=== PATIENT | male | born 1960 | race Caucasian/White ===

== ENCOUNTER 2018-02-02 12:34 | Inpatient (IN) | payer OTHER ==
[~2018-02-02] VITALS: Ht 190.5 cm; Wt 113.4 kg
[2018-02-02 12:46] VITALS: BP 132/53
[2018-02-02] MEDS ORDERED: GLIP5TER PO (13:05)
[2018-02-02] MEDS ORDERED: METO25TE2 PO (13:05)
[2018-02-02] MEDS ORDERED: CLON0.1T42 PO (13:05)
[2018-02-02] MEDS ORDERED: CINA60TA1 PO (13:05)
[2018-02-02] MEDS ORDERED: LON2.5 PO (13:05)
[2018-02-02 14:26] LABS: BASOPHILS % (AUTO) 0.7 % (0.0-2.0); EOSINOPHILS # (AUTO) 1.1 K/uL (0-0.4); EOSINOPHILS % (AUTO) 19.9 % (0.0-4.0); HEMATOCRIT 31.5 % (36-52); HEMOGLOBIN 10.6 g/dL (12.0-18.0); LYMPHOCYTES # (AUTO) 1.2 K/uL (2.0-11.5); LYMPHOCYTES % (AUTO) 21.9 % (20.5-51.1); MEAN CORPUSCULAR HEMOGLOBIN 33 pg (27-31); MEAN CORPUSCULAR HGB CONC 34 g/dL (33-37); MEAN CORPUSCULAR VOLUME 96.5 fL (80-94); MONOCYTES # (AUTO) 0.4 K/uL (0.8-1.0); NEUTROPHILS # (AUTO) 2.7 K/uL (1.8-7.7); NEUTROPHILS % (AUTO) 49.5 % (42.2-75.2); PLATELET COUNT (AUTO) 107 K/uL (140-450); RED BLOOD CELL COUNT(AUTO) 3.27 MIL/uL (4.20-6.10); RED CELL DISTRIBUTION WIDTH 14.3 % (11.6-13.7); WHITE BLOOD COUNT (AUTO) 5.5 K/uL (4.8-10.8)
[2018-02-02 15:11] LABS: ANION GAP 13.1 (8-16); CARBON DIOXIDE 30.9 mmol/L (21-32)
[2018-02-02 15:12] LABS: ALBUMIN 3.6 g/dL (3.4-5.0); TOTAL BILIRUBIN 0.7 mg/dL (0.0-1.0)
[2018-02-02 15:14] LABS: CREATININE 4.9 mg/dL (0.7-1.3)
[2018-02-02] MEDS ORDERED: ASPIRIN 81 MG TAB.CHEW PO ONE (16:00)
[2018-02-02] MEDS ORDERED: NITROGLYCERIN 2% 1 GM PKT TP ONE (16:00)
[2018-02-02] MEDS ORDERED: ALBUTEROL 0.083% 2.5 MG/3 ML NEBU INH ONE (16:15)
[2018-02-02] MEDS ORDERED: IPRATROPIUM 0.02% 0.5 MG/2.5 ML NEBU INH ONE (16:15)
[2018-02-02] MEDS ORDERED: HYDROcodone/APAP 5/325 MG 1 TAB TAB PO PRN (17:05)
[2018-02-02] MEDS ORDERED: ALBUTEROL SULFATE/IPRATROPIU 3 ML SOL IH PRN (17:05)
[2018-02-02] MEDS ORDERED: DOCUSATE SODIUM 100 MG GELCAP PO PRN (17:05)
[2018-02-02] MEDS ORDERED: ONDANSETRON 4 MG/2 ML VIAL IM/IVP PRN (17:05)
[2018-02-02] MEDS ORDERED: ZOLPIDEM 5 MG TAB PO PRN (17:05)
[2018-02-02] MEDS ORDERED: LORazepam 2 MG/ML VIAL IM/IVP PRN (17:05)
[2018-02-02] MEDS ORDERED: ACETAMINOPHEN 325 MG TAB PO PRN (17:05)
[2018-02-02] MEDS ORDERED: DEXTROSE 50% 50 ML SYR IVP PRN ×2 (17:35→20:35)
[2018-02-02] MEDS ORDERED: INSULIN LISPRO SLIDING SCALE 100 UNITS/ML VIAL SUBQ PRN (17:35)
[2018-02-02 17:55] VITALS: BP 143/69
[2018-02-02 18:54] LABS: PROTHROMBIN TIME 10.3 secs (10.8-13.4)
[2018-02-02] MEDS: ALBUTEROL SULFATE/IPRATROPIU 3 ML SOL IH SCH (19:00)
[2018-02-02 19:05] LABS: MAGNESIUM 1.8 mg/dL (1.8-2.4); PHOSPHORUS 3.7 mg/dL (2.5-4.9); THYROID STIMULATING HORMONE 3.63 uIU/mL (0.34-3.74)
[2018-02-02 20:00] VITALS: BP 154/61
[2018-02-02] MEDS ORDERED: GLIP5TAB13 PO (20:15)
[2018-02-02] MEDS ORDERED: [UNRECOGNIZED DRUG - CODE] PO (20:21)
[2018-02-02] MEDS ORDERED: PHO667 PO (20:21)
[2018-02-02] MEDS ORDERED: METO100T22 PO (20:21)
[2018-02-02] MEDS ORDERED: [UNRECOGNIZED DRUG - CODE] IJ (20:23)
[2018-02-02] MEDS ORDERED: MECLIZINE 25 MG TAB PO PRN (20:30)
[2018-02-02] MEDS: METOPROLOL 50 MG TAB PO SCH (20:40)
[2018-02-02] MEDS: MINOXIDIL 2.5 MG TAB PO SCH (20:41)
[2018-02-02] MEDS: cloNIDine 0.1 MG TAB PO SCH (20:43)
[2018-02-02] MEDS: BLOOD GLUCOSE MONITORING 1 DEV DEV FS SCH (20:43)
[2018-02-02] MEDS ORDERED: BLOOD GLUCOSE MONITORING 1 DEV DEV FS SCH (21:00)
[2018-02-02] MEDS ORDERED: NACL 0.9% 1,000 ML IV SCH (21:40)
[2018-02-02] MEDS ORDERED: PIPERACILLIN/TAZOBACTAM 2.25 GM VIAL IV ONE (22:38)
[2018-02-02] MEDS: PIPER/TAZO 2.25GM/D5W PREMIX 50 ML IV SCH (22:42)
[2018-02-03] VITALS: BP 154/61
[2018-02-03] MEDS: cloNIDine 0.1 MG TAB PO SCH ×3 (00:25→23:01)
[2018-02-03] MEDS: ALBUTEROL SULFATE/IPRATROPIU 3 ML SOL IH PRN ×2 (00:49→04:34)
[2018-02-03] MEDS ORDERED: ALBUTEROL SULFATE/IPRATROPIU 3 ML SOL IH SCH (01:00)
[2018-02-03] MEDS ORDERED: BENZOCAINE/MENTHOL 1 LOZ MM PRN (02:40)
[2018-02-03] MEDS ORDERED: guaiFENesin DM 200/20 MG-10 ML 10 ML UDC PO PRN (02:40)
[2018-02-03 04:00] VITALS: BP 122/49
[2018-02-03] MEDS ORDERED: PIPERACILLIN/TAZOBACTAM 2.25 GM VIAL IV ONE (05:36)
[2018-02-03] MEDS: PIPER/TAZO 2.25GM/D5W PREMIX 50 ML IV SCH ×3 (05:36→21:31)
[2018-02-03] MEDS: glipiZIDE 5 MG TAB PO SCH (05:37)
[2018-02-03] MEDS: BLOOD GLUCOSE MONITORING 1 DEV DEV FS SCH ×4 (06:02→20:16)
[2018-02-03 06:25] LABS: T4 (THYROXINE) 9.1 ug/dL (4.5-12.0)
[2018-02-03 06:51] LABS: BASOPHILS % (AUTO) 0.8 % (0.0-2.0); EOSINOPHILS # (AUTO) 1.2 K/uL (0-0.4); EOSINOPHILS % (AUTO) 21.1 % (0.0-4.0); HEMATOCRIT 30.6 % (36-52); HEMOGLOBIN 10.2 g/dL (12.0-18.0); LYMPHOCYTES # (AUTO) 1.1 K/uL (2.0-11.5); LYMPHOCYTES % (AUTO) 18.9 % (20.5-51.1); MEAN CORPUSCULAR HEMOGLOBIN 32 pg (27-31); MEAN CORPUSCULAR HGB CONC 33 g/dL (33-37); MEAN CORPUSCULAR VOLUME 97.3 fL (80-94); MONOCYTES # (AUTO) 0.5 K/uL (0.8-1.0); MONOCYTES % (AUTO) 8.8 % (1.7-9.3); NEUTROPHILS # (AUTO) 2.9 K/uL (1.8-7.7); NEUTROPHILS % (AUTO) 50.4 % (42.2-75.2); PLATELET COUNT (AUTO) 104 K/uL (140-450); RED BLOOD CELL COUNT(AUTO) 3.15 MIL/uL (4.20-6.10); RED CELL DISTRIBUTION WIDTH 14.4 % (11.6-13.7); WHITE BLOOD COUNT (AUTO) 5.8 K/uL (4.8-10.8)
[2018-02-03 07:07] LABS: ANION GAP 13.6 (8-16); CARBON DIOXIDE 29.6 mmol/L (21-32); POTASSIUM 4.2 mmol/L (3.5-5.1)
[2018-02-03 07:20] LABS: CHOL/HDL RATIO 2.6 (1-4.5); MAGNESIUM 2.1 mg/dL (1.8-2.4); PHOSPHORUS 4.9 mg/dL (2.5-4.9)
[2018-02-03] MEDS: ALBUTEROL SULFATE/IPRATROPIU 3 ML SOL IH SCH ×3 (07:24→19:49)
[2018-02-03 08:00] VITALS: BP 156/71
[2018-02-03] MEDS: MINOXIDIL 2.5 MG TAB PO SCH ×2 (09:00→21:32)
[2018-02-03] MEDS: METOPROLOL 50 MG TAB PO SCH ×2 (09:00→21:32)
[2018-02-03 12:00] VITALS: BP 133/59
[2018-02-03] MEDS: INSULIN LISPRO SLIDING SCALE 100 UNITS/ML VIAL SUBQ PRN (12:43)
[2018-02-03] MEDS ORDERED: guaiFENesin 600 MG TABER PO SCH (15:00)
[2018-02-03 16:00] VITALS: BP 137/63
[2018-02-03 20:00] VITALS: BP 132/54
[2018-02-03] MEDS: guaiFENesin 600 MG TABER PO SCH (21:32)
[2018-02-04] VITALS: BP 130/54
[2018-02-04 04:00] VITALS: BP 131/57
[2018-02-04] MEDS: PIPER/TAZO 2.25GM/D5W PREMIX 50 ML IV SCH ×3 (04:36→21:13)
[2018-02-04] MEDS: BLOOD GLUCOSE MONITORING 1 DEV DEV FS SCH ×4 (05:57→21:13)
[2018-02-04] MEDS: glipiZIDE 5 MG TAB PO SCH (05:57)
[2018-02-04] MEDS: ALBUTEROL SULFATE/IPRATROPIU 3 ML SOL IH SCH ×4 (07:25→19:24)
[2018-02-04 07:49] LABS: BASOPHILS # (AUTO) 0.1 K/uL (0.00-0.22); BASOPHILS % (AUTO) 0.9 % (0.0-2.0); EOSINOPHILS # (AUTO) 1.4 K/uL (0-0.4); HEMATOCRIT 31.4 % (36-52); HEMOGLOBIN 10.6 g/dL (12.0-18.0); LYMPHOCYTES # (AUTO) 0.8 K/uL (2.0-11.5); MEAN CORPUSCULAR HEMOGLOBIN 33 pg (27-31); MEAN CORPUSCULAR HGB CONC 34 g/dL (33-37); MONOCYTES # (AUTO) 0.5 K/uL (0.8-1.0); MONOCYTES % (AUTO) 8.1 % (1.7-9.3); NEUTROPHILS # (AUTO) 3.1 K/uL (1.8-7.7); PLATELET COUNT (AUTO) 108 K/uL (140-450); RED BLOOD CELL COUNT(AUTO) 3.23 MIL/uL (4.20-6.10); RED CELL DISTRIBUTION WIDTH 14.5 % (11.6-13.7); WHITE BLOOD COUNT (AUTO) 5.8 K/uL (4.8-10.8)
[2018-02-04 08:00] VITALS: BP 153/64
[2018-02-04 08:31] LABS: ANION GAP 13.2 (8-16); CARBON DIOXIDE 30.7 mmol/L (21-32); POTASSIUM 3.9 mmol/L (3.5-5.1)
[2018-02-04 08:36] LABS: MAGNESIUM 1.9 mg/dL (1.8-2.4); PHOSPHORUS 4.6 mg/dL (2.5-4.9)
[2018-02-04 09:16] LABS: CREATININE 4.9 mg/dL (0.7-1.3)
[2018-02-04] MEDS: guaiFENesin 600 MG TABER PO SCH ×2 (09:58→21:14)
[2018-02-04] MEDS: METOPROLOL 50 MG TAB PO SCH ×2 (09:59→21:15)
[2018-02-04] MEDS: cloNIDine 0.1 MG TAB PO SCH ×2 (09:59→21:15)
[2018-02-04] MEDS: MINOXIDIL 2.5 MG TAB PO SCH (10:00)
[2018-02-04] MEDS ORDERED: LORazepam 2 MG/ML VIAL IM/IVP SCH (11:15)
[2018-02-04 12:00] VITALS: BP 125/57
[2018-02-04] MEDS: INSULIN LISPRO SLIDING SCALE 100 UNITS/ML VIAL SUBQ PRN ×2 (12:21→21:26)
[2018-02-04] MEDS ORDERED: PROMETH/CODEINE 6.25-10MG/5ML 5 ML UDC PO PRN (15:50)
[2018-02-04 16:00] VITALS: BP 127/62
[2018-02-04] MEDS: BUDESONIDE 0.5 MG/2 ML NEBU INH SCH (19:24)
[2018-02-04 20:00] VITALS: BP 123/58
[2018-02-04] MEDS: MINOXIDIL 10 MG TAB PO SCH (21:14)
[2018-02-05] VITALS (7 sets, daily range): BP systolic 92–134; BP diastolic 48–80
[2018-02-05] MEDS: PIPER/TAZO 2.25GM/D5W PREMIX 50 ML IV SCH ×3 (04:33→21:12)
[2018-02-05] MEDS: BLOOD GLUCOSE MONITORING 1 DEV DEV FS SCH ×4 (05:30→21:15)
[2018-02-05] MEDS: INSULIN LISPRO SLIDING SCALE 100 UNITS/ML VIAL SUBQ PRN ×3 (05:36→21:19)
[2018-02-05] MEDS: glipiZIDE 5 MG TAB PO SCH ×2 (06:12→06:19)
[2018-02-05] MEDS: BUDESONIDE 0.5 MG/2 ML NEBU INH SCH ×2 (07:31→20:19)
[2018-02-05] MEDS: ALBUTEROL SULFATE/IPRATROPIU 3 ML SOL IH SCH ×3 (07:31→20:19)
[2018-02-05 07:51] LABS: HEMATOCRIT 28.3 % (36-52); HEMOGLOBIN 9.5 g/dL (12.0-18.0); MEAN CORPUSCULAR HEMOGLOBIN 33 pg (27-31); MEAN CORPUSCULAR HGB CONC 34 g/dL (33-37); MEAN CORPUSCULAR VOLUME 97.4 fL (80-94); PLATELET COUNT (AUTO) 89 K/uL (140-450); RED CELL DISTRIBUTION WIDTH 14.8 % (11.6-13.7); WHITE BLOOD COUNT (AUTO) 5.5 K/uL (4.8-10.8)
[2018-02-05 08:15] LABS: ANION GAP 9.8 (8-16); CARBON DIOXIDE 32.3 mmol/L (21-32); POTASSIUM 4.1 mmol/L (3.5-5.1)
[2018-02-05 08:17] LABS: CREATININE 6.9 mg/dL (0.7-1.3)
[2018-02-05 08:20] LABS: PHOSPHORUS 6.1 mg/dL (2.5-4.9)
[2018-02-05 08:22] LABS: EOSINOPHILS % (MANUAL) 18 % (0-4); LYMPHOCYTES % (MANUAL) 23 % (20-46); MONOCYTES % (MANUAL) 3 % (5-12)
[2018-02-05] MEDS: guaiFENesin 600 MG TABER PO SCH ×2 (08:34→21:12)
[2018-02-05] MEDS: MINOXIDIL 10 MG TAB PO SCH ×2 (08:34→21:12)
[2018-02-05] MEDS: cloNIDine 0.1 MG TAB PO SCH ×2 (08:35→21:13)
[2018-02-05] MEDS: METOPROLOL 50 MG TAB PO SCH ×2 (08:35→21:13)
[2018-02-06 04:28] VITALS: BP 134/66
[2018-02-06] MEDS: PIPER/TAZO 2.25GM/D5W PREMIX 50 ML IV SCH ×2 (04:34→12:56)
[2018-02-06] MEDS: BLOOD GLUCOSE MONITORING 1 DEV DEV FS SCH ×4 (06:13→20:54)
[2018-02-06] MEDS: BUDESONIDE 0.5 MG/2 ML NEBU INH SCH ×2 (07:21→19:42)
[2018-02-06] MEDS: ALBUTEROL SULFATE/IPRATROPIU 3 ML SOL IH SCH ×3 (07:21→19:42)
[2018-02-06 07:46] LABS: BASOPHILS % (AUTO) 0.7 % (0.0-2.0); EOSINOPHILS # (AUTO) 1.3 K/uL (0-0.4); EOSINOPHILS % (AUTO) 21.8 % (0.0-4.0); HEMATOCRIT 28.1 % (36-52); HEMOGLOBIN 9.5 g/dL (12.0-18.0); LYMPHOCYTES # (AUTO) 1.2 K/uL (2.0-11.5); MEAN CORPUSCULAR HEMOGLOBIN 33 pg (27-31); MEAN CORPUSCULAR HGB CONC 34 g/dL (33-37); MEAN CORPUSCULAR VOLUME 97.2 fL (80-94); MONOCYTES # (AUTO) 0.7 K/uL (0.8-1.0); MONOCYTES % (AUTO) 11.7 % (1.7-9.3); NEUTROPHILS # (AUTO) 2.8 K/uL (1.8-7.7); NEUTROPHILS % (AUTO) 45.8 % (42.2-75.2); PLATELET COUNT (AUTO) 87 K/uL (140-450); RED BLOOD CELL COUNT(AUTO) 2.89 MIL/uL (4.20-6.10); RED CELL DISTRIBUTION WIDTH 14.8 % (11.6-13.7); WHITE BLOOD COUNT (AUTO) 6.2 K/uL (4.8-10.8)
[2018-02-06 07:57] LABS: ANION GAP 17.2 (8-16); CARBON DIOXIDE 28.3 mmol/L (21-32); POTASSIUM 4.5 mmol/L (3.5-5.1)
[2018-02-06 08:00] VITALS: BP 116/71
[2018-02-06 08:19] LABS: CREATININE 8.6 mg/dL (0.7-1.3)
[2018-02-06] MEDS: cloNIDine 0.1 MG TAB PO SCH ×2 (09:00→20:55)
[2018-02-06] MEDS: METOPROLOL 50 MG TAB PO SCH ×2 (09:00→20:56)
[2018-02-06] MEDS: MINOXIDIL 10 MG TAB PO SCH ×2 (09:00→20:56)
[2018-02-06] MEDS: guaiFENesin 600 MG TABER PO SCH ×2 (11:46→20:56)
[2018-02-06] MEDS: INSULIN LISPRO SLIDING SCALE 100 UNITS/ML VIAL SUBQ PRN ×2 (11:55→17:28)
[2018-02-06 12:00] VITALS: BP 110/51
[2018-02-06 16:00] VITALS: BP 128/53
[2018-02-06 20:00] VITALS: BP 127/54
[2018-02-07] VITALS: BP 111/50
[2018-02-07] MEDS: BLOOD GLUCOSE MONITORING 1 DEV DEV FS SCH ×2 (05:59→12:10)
[2018-02-07] MEDS: INSULIN LISPRO SLIDING SCALE 100 UNITS/ML VIAL SUBQ PRN ×2 (06:03→12:12)
[2018-02-07] MEDS: ALBUTEROL SULFATE/IPRATROPIU 3 ML SOL IH SCH ×3 (07:08→15:15)
[2018-02-07] MEDS: BUDESONIDE 0.5 MG/2 ML NEBU INH SCH (07:17)
[2018-02-07 08:00] VITALS: BP 134/54
[2018-02-07] MEDS: MINOXIDIL 10 MG TAB PO SCH (10:42)
[2018-02-07] MEDS: guaiFENesin 600 MG TABER PO SCH (10:43)
[2018-02-07 10:46] VITALS: BP 126/57
[2018-02-07] MEDS: cloNIDine 0.1 MG TAB PO SCH (10:46)
[2018-02-07] MEDS: METOPROLOL 50 MG TAB PO SCH (10:47)
[2018-02-07 11:13] LABS: HEMATOCRIT 29.5 % (36-52); HEMOGLOBIN 9.9 g/dL (12.0-18.0); MEAN CORPUSCULAR HEMOGLOBIN 33 pg (27-31); MEAN CORPUSCULAR HGB CONC 34 g/dL (33-37); MEAN CORPUSCULAR VOLUME 97.3 fL (80-94); PLATELET COUNT (AUTO) 91 K/uL (140-450); RED BLOOD CELL COUNT(AUTO) 3.03 MIL/uL (4.20-6.10); RED CELL DISTRIBUTION WIDTH 14.7 % (11.6-13.7); WHITE BLOOD COUNT (AUTO) 5.2 K/uL (4.8-10.8)
[2018-02-07 11:24] LABS: ANION GAP 14.4 (8-16); CARBON DIOXIDE 30.3 mmol/L (21-32); POTASSIUM 3.7 mmol/L (3.5-5.1)
[2018-02-07 11:28] LABS: CREATININE 6.6 mg/dL (0.7-1.3)
[2018-02-07 11:35] LABS: PHOSPHORUS 5.4 mg/dL (2.5-4.9)
[2018-02-07 13:44] LABS: EOSINOPHILS % (MANUAL) 27 % (0-4); LYMPHOCYTES % (MANUAL) 20 % (20-46); MONOCYTES % (MANUAL) 8 % (5-12)
[2018-02-07 13:45] LABS: BASOPHILS % (MANUAL) 0 % (0-2)
== END 2018-02-07 15:55 | disposition home or self-care (01) | DRG 682 ==
LOC: MED 12:34 → MTU 17:10
PROVIDERS: ADMIT General Practice; ATTEND General Practice
PROC: 5A1D70Z Performance of Urinary Filtration, Intermittent, Less than 6 Hours Per Day (ICD-10-PCS; principal; 2018-02-03)
PROC: 5A1D70Z Performance of Urinary Filtration, Intermittent, Less than 6 Hours Per Day (ICD-10-PCS; 2018-02-06)
DX: N17.0 Acute kidney failure with tubular necrosis (principal); J18.9 Pneumonia, unspecified organism; G93.41 Metabolic encephalopathy; I50.43 Acute on chronic combined systolic (congestive) and diastolic (congestive) heart failure; J96.01 Acute respiratory failure with hypoxia; I13.2 Hypertensive heart and chronic kidney disease with heart failure and with stage 5 chronic kidney disease, or end stage renal disease; N18.6 End stage renal disease; Z99.2 Dependence on renal dialysis; D63.8 Anemia in other chronic diseases classified elsewhere; D72.1 Eosinophilia; E11.22 Type 2 diabetes mellitus with diabetic chronic kidney disease; E11.51 Type 2 diabetes mellitus with diabetic peripheral angiopathy without gangrene; E83.39 Other disorders of phosphorus metabolism; D69.6 Thrombocytopenia, unspecified; E11.65 Type 2 diabetes mellitus with hyperglycemia; R59.1 Generalized enlarged lymph nodes; Z89.511 Acquired absence of right leg below knee; Z79.84 Long term (current) use of oral hypoglycemic drugs; Z79.899 Other long term (current) drug therapy; Z89.011 Acquired absence of right thumb; Z91.018 Allergy to other foods
CPT/HCPCS: 36415; 36600; 70450; 71045; 71250; 80048; 80053; 82150; 82803; 82948; 83036; 83605; 83690; 83735; 83880; 84100; 84134; 84436; 84443; 84484; 85025; 85610; 85730; 87040; 87070; 87081; 87205; 87804; 88189; 93880; 93925; 93970; 94640; 97116; 97530; 99285; J2060; J2543; J7030; J7060; J7613; J7620; J7626; J7644; Q0092

== ENCOUNTER 2018-03-02 10:23 | Emergency (ER) | payer OTHER ==
[~2018-03-02] VITALS: Ht 190.5 cm; Wt 114.8 kg
[~2018-03-02 10:23] MED LIST: CINA60TA1 PO; CLON0.1T42 PO; GLIP5TAB13 PO; LON2.5 PO; METO100T22 PO; PHO667 PO; [UNRECOGNIZED DRUG - CODE] IJ; [UNRECOGNIZED DRUG - CODE] PO
--- NOTE | 2018-03-02 10:24 | NUR ---
PT BIBA BLS TO BED 11
[2018-03-02 10:28] VITALS: BP 148/55
--- NOTE | 2018-03-02 10:35 | NUR ---
biba c/o fall. pt states he fell inside the dialysis center but has not gotten dialysisi today, pt has right arm pain, left shoulder pain, abrasions on right hand. no loc . PT HAS ANURIA. AV SHUNT LEFT UPPER ARM. pmh: dm, htn, renal failure, dialysis (m,w,f), RIGHT THUMB AMPUTED. PATIENT STATES PAIN OF 10/10 AT THIS TIME. PATIENT POSITIONED FOR COMFORT; HOB ELEVATED; BEDRAILS UP X2; BED DOWN. ER MD MADE AWARE OF PT STATUS.
[2018-03-02] MEDS ORDERED: HYDROcodone/APAP 5/325 MG 1 TAB TAB PO ONE (10:45)
[2018-03-02] MEDS ORDERED: ONDANSETRON 4 MG ODT PO ONE (10:45)
--- NOTE | 2018-03-02 12:01 | NUR ---
PT RETURNED FROM XRAY
--- NOTE | 2018-03-02 13:23 | NUR ---
FAMILY AT BEDSIDE.
[2018-03-02 13:57] VITALS: BP 114/58
--- NOTE | 2018-03-02 13:57 | NUR ---
Patient discharged with v/s stable. Written and verbal after care instructions given and explained. Patient alert, oriented and verbalized understanding of instructions. Wheel Chair Assisted with to car. All questions addressed prior to discharge. ID band removed. Patient advised to follow up with PMD. Rx of NORCO given. Patient educated on indication of medication including possible reaction and side effects. Opportunity to ask questions provided and answered.
[2018-03-02] MEDS ORDERED: NAPROXEN 375 MG TAB PO ONE (21:00)
== END 2018-03-02 13:57 | disposition home or self-care (01) ==
LOC: MED 10:23
DX: S96.912A Strain of unspecified muscle and tendon at ankle and foot level, left foot, initial encounter (principal); E11.9 Type 2 diabetes mellitus without complications; I10 Essential (primary) hypertension; Z91.018 Allergy to other foods; Z79.84 Long term (current) use of oral hypoglycemic drugs; Z79.899 Other long term (current) drug therapy; Z99.2 Dependence on renal dialysis; W18.09XA Striking against other object with subsequent fall, initial encounter; Y93.01 Activity, walking, marching and hiking; Y92.89 Other specified places as the place of occurrence of the external cause; Y99.8 Other external cause status
CPT/HCPCS: 72170; 73030; 73090; 99284; Q0162

== ENCOUNTER 2018-06-13 15:32 | Emergency (ER) | payer OTHER ==
[~2018-06-13] VITALS: Ht 190.5 cm; Wt 111.1 kg
[2018-06-13 15:43] VITALS: BP 141/68
--- NOTE | 2018-06-13 15:47 | NUR ---
PT AMBULATED WITH WALKER TO ER BED 10
--- NOTE | 2018-06-13 16:12 | NUR ---
PT A&OX4, BIB FAMILY C/O SOB X THIS AM, "BETTER AFTER SHOWER THIS MORNING." SINUS CONGESTION AND DRY COUGH EXACERBATED IN THE AM. LUNG SOUNDS CLEAR BILAT, BREATHING EVEN AND UNLABORED. SPO2 94% ON RA. SPO2 97% AFTER BEING PLACED ON 2LITER O2 VIA NC, TOLERATING WELL. PT HAS DIALYSIS SHUNT WITH +BRUIT TO LUE, DIALYSIS MWF, LAST COMPLETED YESTERDAY. PT DENIES CP. NSR ON MONITOR. HX: HTN, DIABETES, DIALYSIS, RIGHT BKA, RIGHT THUMB AMPUTATION, RIGHT EYE BLINDNESS
--- NOTE | 2018-06-13 16:12 | NUR ---
PT EVALUATED BY DR. ESTEVEZ.
[2018-06-13] MEDS ORDERED: IPRATROPIUM 0.02% 0.5 MG/2.5 ML NEBU INH ONE (16:20)
[2018-06-13] MEDS ORDERED: ALBUTEROL 0.083% 2.5 MG/3 ML NEBU INH ONE (16:20)
--- NOTE | 2018-06-13 16:27 | NUR ---
RT AT BEDSIDE TO ADMINISTER BREATHING TX
--- NOTE | 2018-06-13 16:42 | NUR ---
pt has refused the abg and masood french and dr. orosco notified
--- NOTE | 2018-06-13 16:42 | NUR ---
IV ATTEMPTED X 2. UNABLE TO ESTABLISH IV, PT REFUSED MORE ATTEMPTS PT ALSO REFUSED ABG DRAW. DR. ESTEVEZ MADE AWARE.
--- NOTE | 2018-06-13 16:52 | NUR ---
PCXR AT BEDSIDE
[2018-06-13 16:57] LABS: BASOPHILS % (AUTO) 0.6 % (0.0-2.0); EOSINOPHILS # (AUTO) 1.2 K/uL (0-0.4); EOSINOPHILS % (AUTO) 24.1 % (0.0-4.0); HEMATOCRIT 35.3 % (36-52); HEMOGLOBIN 11.9 g/dL (12.0-18.0); LYMPHOCYTES # (AUTO) 0.8 K/uL (2.0-11.5); LYMPHOCYTES % (AUTO) 16.9 % (20.5-51.1); MEAN CORPUSCULAR HEMOGLOBIN 32 pg (27-31); MEAN CORPUSCULAR HGB CONC 34 g/dL (33-37); MEAN CORPUSCULAR VOLUME 95.1 fL (80-94); MONOCYTES # (AUTO) 0.4 K/uL (0.8-1.0); MONOCYTES % (AUTO) 9.2 % (1.7-9.3); NEUTROPHILS # (AUTO) 2.4 K/uL (1.8-7.7); NEUTROPHILS % (AUTO) 49.2 % (42.2-75.2); PLATELET COUNT (AUTO) 117 K/uL (140-450); RED BLOOD CELL COUNT(AUTO) 3.71 MIL/uL (4.20-6.10); RED CELL DISTRIBUTION WIDTH 17.6 % (11.6-13.7); WHITE BLOOD COUNT (AUTO) 4.8 K/uL (4.8-10.8)
[2018-06-13 17:05] LABS: ANION GAP 11.3 (8-16); CARBON DIOXIDE 30.7 mmol/L (21-32)
[2018-06-13 17:08] LABS: CREATININE 5.1 mg/dL (0.7-1.3)
[2018-06-13 17:11] LABS: ALBUMIN 3.2 g/dL (3.4-5.0); TOTAL BILIRUBIN 0.9 mg/dL (0.0-1.0)
--- NOTE | 2018-06-13 17:37 | NUR ---
PT STS "I FEEL BETTER AFTER THE BREATHING TREATMENT." BREATHING REMAINS EVEN AND UNLABORED. NSR ON MONITOR. FAMILY AT BEDSIDE.
[2018-06-13 18:44] VITALS: BP 124/58
--- NOTE | 2018-06-13 18:45 | NUR ---
Patient discharged with v/s stable WITH FAMILY. Written and verbal after care instructions given and explained. Patient alert, oriented and verbalized understanding of instructions. Ambulatory with steady gait WITH WALKER. All questions addressed prior to discharge. ID band removed. Patient advised to follow up with PMD. Rx of AZITHROMYCIN, PREDNISONE, AND ALBUTEROL given. Patient educated on indication of medication including possible reaction and side effects. Opportunity to ask questions provided and answered.
== END 2018-06-13 18:45 | disposition home or self-care (01) ==
LOC: MED 15:32
DX: J40 Bronchitis, not specified as acute or chronic (principal); E11.22 Type 2 diabetes mellitus with diabetic chronic kidney disease; I12.0 Hypertensive chronic kidney disease with stage 5 chronic kidney disease or end stage renal disease; N18.6 End stage renal disease; Z99.2 Dependence on renal dialysis; Z79.84 Long term (current) use of oral hypoglycemic drugs; Z79.899 Other long term (current) drug therapy; Z91.018 Allergy to other foods
CPT/HCPCS: 36415; 71045; 80053; 83605; 84484; 85025; 87040; 87804; 93005; 94640; 99284; J7613; J7644; Q0092

== ENCOUNTER 2018-12-13 10:47 | Emergency (ER) | payer OTHER ==
[~2018-12-13] VITALS: Ht 190.5 cm; Wt 114.3 kg
[~2018-12-13 10:47] MED LIST changes: +[UNRECOGNIZED DRUG - CODE] IJ; -[UNRECOGNIZED DRUG - CODE] IJ
[2018-12-13 10:48] VITALS: BP 133/78
--- NOTE | 2018-12-13 10:48 | NUR ---
58M C/O LEFT SIDE ABD PAIN X 3 DAYS WITH BLOATING AND NON BLOODY DIARRHEA X 2 DAYS. PAIN WORSE LYING SUPINE. LBM TODAY LIQUIDY. +FLATUS. +CHILLS AND SUBJECTIVE FEVER LAST NIGHT. A/O X4; FOLLOWS COMMANDS; BREATHING IS UNLABORED AND SYMMETRICAL. GI: ABDOMEN IS ROUND AND NONTENDER. BOWEL SOUNDS HYPERACTIVE ON ALL FOUR QUADRANTS. +N/V/D. :PATIENT STATES IS "DOESN'T MAKE URINE". PATIENT ALSO HAS A PROSTHETIC RIGHT LEG AND AMBULATES TO WITH ASSISTANCE/WHEELCHAIR. ERMD MADE AWARE OF STATUS. SIDE RAILSX1. AT BEDSIDE. WILL CONTINUE TO MONITOR LT UA AV SHUNT. DID NOT GO TO DIALYSIS TODAY YET DUE TO THE DIARRHEA. HX- HTN, DM, DIALYSIS M/W/F ALLERGIES: CHICKEN; MUSTARD
--- NOTE | 2018-12-13 10:58 | NUR ---
Patient ambulated to bed 7. RN evaluating patient at bedside.
[2018-12-13] MEDS ORDERED: KETOROLAC 30 MG/ML VIAL IVP ONE (11:00)
[2018-12-13] MEDS ORDERED: ONDANSETRON 4 MG/2 ML VIAL IVP ONE (11:00)
--- NOTE | 2018-12-13 11:04 | NUR ---
Dr. Núñez evaluating patient at bedside.
--- NOTE | 2018-12-13 11:31 | NUR ---
PATIENT TAKEN TO CT.
[2018-12-13 11:37] LABS: HEMATOCRIT 33.9 % (36-52); HEMOGLOBIN 11.4 g/dL (12.0-18.0); MEAN CORPUSCULAR HEMOGLOBIN 33 pg (27-31); MEAN CORPUSCULAR HGB CONC 34 g/dL (33-37); MEAN CORPUSCULAR VOLUME 99.5 fL (80-94); PLATELET COUNT (AUTO) 134 K/uL (140-450); RED BLOOD CELL COUNT(AUTO) 3.41 MIL/uL (4.20-6.10); RED CELL DISTRIBUTION WIDTH 15.3 % (11.6-13.7); WHITE BLOOD COUNT (AUTO) 4.7 K/uL (4.8-10.8)
[2018-12-13 11:49] LABS: ALBUMIN 3.4 g/dL (3.4-5.0); ANION GAP 14.7 (8-16); CARBON DIOXIDE 26.5 mmol/L (21-32); POTASSIUM 4.2 mmol/L (3.5-5.1); TOTAL BILIRUBIN 0.8 mg/dL (0.0-1.0)
--- NOTE | 2018-12-13 11:51 | NUR ---
PATIENT IS IN NO DISTRESS AT THIS TIME. AT BEDSIDE. WILL CONTINUE TO MONITOR.
[2018-12-13 12:09] LABS: EOSINOPHILS % (MANUAL) 17 % (0-4); MONOCYTES % (MANUAL) 8 % (5-12)
[2018-12-13 12:10] LABS: LYMPHOCYTES % (MANUAL) 23 % (20-46)
--- NOTE | 2018-12-13 12:38 | NUR ---
PATIENT QUIETLY SITTING IN BED. AT BEDSIDE. WILL CONTINUE TO MONITOR.
[2018-12-13 13:01] VITALS: BP 125/64
--- NOTE | 2018-12-13 13:01 | NUR ---
Patient discharged with v/s stable. Written and verbal after care instructions given and explained. Patient alert, oriented and verbalized understanding of instructions. Ambulatory with steady gait. All questions addressed prior to discharge. ID band removed. Patient advised to follow up with PMD. Rx of IMODIUM; AZITHROMYCIN; MOTRIN given. Patient educated on indication of medication including possible reaction and side effects. Opportunity to ask questions provided and answered.
== END 2018-12-13 13:01 | disposition home or self-care (01) ==
LOC: MED 10:47
DX: R19.7 Diarrhea, unspecified (principal); J18.9 Pneumonia, unspecified organism; I12.9 Hypertensive chronic kidney disease with stage 1 through stage 4 chronic kidney disease, or unspecified chronic kidney disease; E11.22 Type 2 diabetes mellitus with diabetic chronic kidney disease; N18.6 End stage renal disease; Z88.8 Allergy status to other drugs, medicaments and biological substances; Z79.899 Other long term (current) drug therapy; Z79.84 Long term (current) use of oral hypoglycemic drugs; Z99.2 Dependence on renal dialysis; Z98.890 Other specified postprocedural states; Z89.511 Acquired absence of right leg below knee; Z91.018 Allergy to other foods
CPT/HCPCS: 36415; 74176; 80053; 83690; 85025; 96374; 96375; 99284; J1885; J2405

== ENCOUNTER 2018-12-17 12:09 | Inpatient (IN) | payer OTHER ==
[~2018-12-17] VITALS: Ht 190.5 cm; Wt 115.2 kg
[2018-12-17 12:23] VITALS: BP 127/72
--- NOTE | 2018-12-17 12:33 | NUR ---
58/M BIBS. COMPLAINING OF ABDOMINAL PAIN. HAS NOT GONE TO THE BATHROOM SINCE 12/14/18, REPORTED HE WAS IN [facility] ER ON 12/13/18 FOR DIARRHEA, EMODIOUM AND ANTIBIOTICS GIVEN. HE REPORTS A PAIN OF 9 ON LUQ AND LLQ, BSX4, HE STATES HE "WANTS TO GO TO THE BATHRROM BUT CANT" BURNING PAIN, CHILLS, +GAS, "REPORTS THAT HE FEELS "IF HE CANT TAKE A DEEP BREATH". HAS HAS NOTHING TO DRINK OR EAT SINCE NIGHT OF 12/16/18. PMHX: HYPOTHYROIDISM, DIABETES
--- NOTE | 2018-12-17 12:33 | NUR ---
Patient ambulated to bed 9. RN evaluating patient at bedside.
[2018-12-17] MEDS ORDERED: SODIUM PHOSPHATE 118 ML ENEM RC ONE ×2 (13:20→14:20)
[2018-12-17] MEDS ORDERED: LACTULOSE 20 GM/30 ML UDC PO ONE (13:20)
[2018-12-17] MEDS ORDERED: LORazepam 1 MG TAB PO ONE (13:20)
--- NOTE | 2018-12-17 13:39 | NUR ---
ACCIDENTALLY DROPPED 1MG ATIVAN PO ON GROUND WHILE PREPARING MEDS, WASTED IN ER PYXIS, WITNESSED BY CAPRICE KNIGTH RN, OVERRODE 1MG ATIVAN PO FOR PT. ADMINISTERED ORDERED MEDS WITH EDUCATION, PT VERBALIZED UNDERSTANDING. PT INSTRUCTED TO HOLD FLEET ENEMA UNTIL URGE TO HAVE BM.
[2018-12-17 13:51] LABS: BASOPHILS # (AUTO) 0.1 K/uL (0.00-0.22); EOSINOPHILS # (AUTO) 0.8 K/uL (0-0.4); EOSINOPHILS % (AUTO) 14.7 % (0.0-4.0); HEMATOCRIT 32.7 % (36-52); HEMOGLOBIN 11.2 g/dL (12.0-18.0); LYMPHOCYTES # (AUTO) 1.1 K/uL (2.0-11.5); LYMPHOCYTES % (AUTO) 20.9 % (20.5-51.1); MEAN CORPUSCULAR HEMOGLOBIN 34 pg (27-31); MEAN CORPUSCULAR HGB CONC 34 g/dL (33-37); MEAN CORPUSCULAR VOLUME 98.2 fL (80-94); MONOCYTES # (AUTO) 0.5 K/uL (0.8-1.0); MONOCYTES % (AUTO) 9.8 % (1.7-9.3); NEUTROPHILS # (AUTO) 2.8 K/uL (1.8-7.7); NEUTROPHILS % (AUTO) 53.6 % (42.2-75.2); PLATELET COUNT (AUTO) 139 K/uL (140-450); RED BLOOD CELL COUNT(AUTO) 3.34 MIL/uL (4.20-6.10); RED CELL DISTRIBUTION WIDTH 15.1 % (11.6-13.7); WHITE BLOOD COUNT (AUTO) 5.2 K/uL (4.8-10.8)
[2018-12-17 14:10] LABS: ALBUMIN 3.2 g/dL (3.4-5.0); ANION GAP 14.8 (8-16); CARBON DIOXIDE 27.5 mmol/L (21-32); POTASSIUM 4.3 mmol/L (3.5-5.1); TOTAL BILIRUBIN 0.8 mg/dL (0.0-1.0)
--- NOTE | 2018-12-17 14:16 | NUR ---
PT ABLE TO HAVE VERY LITTLE AMOUNT OF STOOL AFTER HOLDING FLEET ENEMA FOR [address] SPANGLER MADE AWARE. ADMINISTER 2ND DOSE OF FLEET ENEMA RC PER ER MD, PT INSTRUCTED TO HOLD ENEMA UNTIL URGE.
[2018-12-17 14:18] LABS: CREATININE 6.4 mg/dL (0.7-1.3)
--- NOTE | 2018-12-17 14:30 | NUR ---
PT WAS NOT ABLE TO HAVE BM AFTER 2ND DOSE OF FLEET ENEMA RC. DR SPANGLER MADE AWARE, CT TO BE ORDERED TO R/O BOWEL OBSTRUCTION.
--- NOTE | 2018-12-17 14:48 | NUR ---
Dr. Desouza evaluating patient at bedside.
--- NOTE | 2018-12-17 15:02 | NUR ---
Patient taken to CT scan via wheelchair by tech.
--- NOTE | 2018-12-17 15:20 | NUR ---
PT RETURNED FROM RADIOLOGY
--- NOTE | 2018-12-17 15:20 | NUR ---
Patient returned from CT scan. RN re-evaluating patient at bedside.
--- NOTE | 2018-12-17 15:31 | NUR ---
PT, REPORTS LLQ AND LUQ IS A 10 AND RLQ IS AN 8. PT REPORTED A SMALL BM.
[2018-12-17] MEDS ORDERED: DEXTROSE 50% 50 ML SYR IVP PRN (15:40)
[2018-12-17] MEDS ORDERED: ONDANSETRON 4 MG/2 ML VIAL IM/IVP PRN (15:40)
[2018-12-17] MEDS ORDERED: MORPHINE SULFATE 2 MG/ML SYR IVP PRN (15:40)
[2018-12-17] MEDS ORDERED: INSULIN LISPRO SLIDING SCALE 100 UNITS/ML VIAL SUBQ PRN (15:40)
[2018-12-17] MEDS ORDERED: DOCUSATE SODIUM 100 MG GELCAP PO PRN (15:40)
[2018-12-17] MEDS ORDERED: ACETAMINOPHEN 325 MG TAB PO PRN (15:40)
[2018-12-17] MEDS ORDERED: LORazepam 2 MG/ML VIAL IM/IVP PRN (15:40)
--- NOTE | 2018-12-17 16:15 | NUR ---
IV ESTABLISHED ON RIGHT HAND, 24G
[2018-12-17 16:23] LABS: PHOSPHORUS 4.2 mg/dL (2.5-4.9); THYROID STIMULATING HORMONE 3.11 uIU/mL (0.34-3.74)
--- NOTE | 2018-12-17 16:27 | NUR ---
PT. TRANSFERRED TO M/S. REPORT GIVEN TO LINH ERWIN. VSS
[2018-12-17 16:30] LABS: PROTHROMBIN TIME 10.4 secs (10.8-13.4)
[2018-12-17] MEDS: BLOOD GLUCOSE MONITORING 1 DEV DEV FS SCH ×2 (16:30→21:15)
--- NOTE | 2018-12-17 16:30 | NUR ---
RECEIVED PATIENT FROM ER NURSE. PATIENT IS FULL CODE, ALLERGIES TO CHICKEN FOOD AND MUSTARD. PATIENT HAS A RIGHT HAND 24G WITH IV INFUSING AT TKO 10ML/HR. PATIENT IS AAOX4. AV SHUNT TO LEFT ARM. SKIN IS INTACT, WILL CONTINUE WITH PLAN OF CARE FOR THE DAY.
--- NOTE | 2018-12-17 17:00 | NUR ---
BLOOD SUGAR OF 100, NO INSULIN NEEDED.
[2018-12-17] MEDS ORDERED: SODIUM PHOSPHATE 118 ML ENEM RC PRN (17:25)
[2018-12-17] MEDS: NACL 0.9% 1,000 ML IV SCH (18:43)
--- NOTE | 2018-12-17 18:48 | NUR ---
INFORMED BY PATIENT HE DOES NOT PRODUCE URINE, CANNOT OBTAIN URINE SAMPLE.
--- NOTE | 2018-12-17 19:20 | NUR ---
REPORT RECEIVED FROM AM NURSE AT BEDSIDE. PT IN STABLE CONDITION. AAOX4. INTRODUCED SELF TO PT. BOARD UPDATED. NO COMPLAINTS OF PAIN. NO SOB. AFEBRILE. PT HAS A RIGHT BKA WITH RIGHT LEG PROSTHESIS. PT HAS WALKER IN THE ROOM AND AMBULATES. L UPPER ARM AV SHUNT. PT IS ANURIC. IV SITE R HAND 24G RUNNING NS@10ML/HR PATENT AND INTACT. SKIN WARM, DRY, AND INTACT WITH NO OPEN WOUNDS. BED LOCKED IN LOW POSITION. CALL LAZAR WITHIN REACH. SAFETY PRECAUTION IN PLACE. ALL NEEDS MET AT THIS TIME.
[2018-12-17 20:00] VITALS: BP 136/63
[2018-12-17] MEDS: CINACALCET 30 MG TAB PO SCH (21:00)
[2018-12-17] MEDS: MINOXIDIL 2.5 MG TAB PO SCH (21:00)
[2018-12-17] MEDS: BISACODYL 5 MG TABEC PO SCH (21:12)
[2018-12-17] MEDS: cloNIDine 0.1 MG TAB PO SCH (21:12)
--- NOTE | 2018-12-17 21:15 | NUR ---
CATAPRES AND DULCOLAX GIVEN PO. SENSIPAR NOT AVAILABLE. NO MEDICATION FOUND IN CASSETTE. PT CAME IN AFTER 1600 AND PHARMACY ALREADY LEFT. LOPRESSOR AND LONITEN HELD UNTIL BLOOD PRESSURE REASSESSMENT OF CATAPRES. BS 121. NO INSULIN COVERAGE NEEDED.
[2018-12-17] MEDS ORDERED: HYDROcodone/APAP 5/325 MG 1 TAB TAB PO PRN (23:10)
[2018-12-17] MEDS: METOPROLOL 50 MG TAB PO SCH (23:26)
--- NOTE | 2018-12-17 23:26 | NUR ---
BP 136/63 AND HR 84. NOTIFIED MD. MD ORDERED TO GIVE LOPRESSOR AND HOLD LONITEN. LOPRESSOR GIVEN. PT TOLERATED WELL. Addendum: 12/18/18 at 0038 by Ron Jimenez RN NORCO GIVEN FOR 10/31 SHOULDER PAIN. PT DID NOT WANT MORPHINE BUT WANTED NORCO INSTEAD. PT TOLERATED WELL.
[2018-12-18] VITALS: BP 136/63
[2018-12-18] MEDS ORDERED: MELATONIN 3 MG TAB PO PRN (00:15)
--- NOTE | 2018-12-18 00:22 | NUR ---
MELATONIN GIVEN FOR SLEEP.
--- NOTE | 2018-12-18 02:30 | NUR ---
PT SLEEPING COMFORTABLY BUT AROUSABLE. NO S/S OF DISTRESS NOTED. RESPIRATIONS EVEN, UNLABORED, AND WNL. WILL CONTINUE TO MONITOR.
--- NOTE | 2018-12-18 04:00 | NUR ---
PT ASKED IF HE COULD BE ON 2L O2 VIA NC DUE TO TROUBLE BREATHING. PATIENT SATURATION 91% ON RA. WILL PUT PT ON 2L O2 ANC.
[2018-12-18] MEDS: BLOOD GLUCOSE MONITORING 1 DEV DEV FS SCH ×4 (05:19→20:59)
--- NOTE | 2018-12-18 05:19 | NUR ---
BS 101. NO INSULIN COVERAGE NEEDED.
[2018-12-18] MEDS: glipiZIDE 5 MG TAB PO SCH ×2 (05:33→05:35)
--- NOTE | 2018-12-18 06:00 | NUR ---
PT REFUSED GLUCOTROL. PT STATES PCP TOLD HIM NOT TO TAKE THAT MEDICATION ANYMORE. MD NOTIFIED AND REMOVED FROM MED LIST.
--- NOTE | 2018-12-18 07:00 | NUR ---
RECEIVED PATIENT FROM NIGHT RN. PATIENT IS AWAKE IN BED, NOW ON 2L NASAL CANNULA D/T REPORTING SOB OVER NIGHT. PATIENT SATURATING 95% ON 2L. PATIENT IS FULL CODE, ALLERGIES TO CHICKEN FOOD AND MUSTARD. ORDERS FOR OCCULT BLOOD, NOT YET OBTAINED. AV SHUNT TO LEFT ARM. PLAN FOR THE DAY IS HEMODIALYSIS PER PATIENTS SCHEDULED MON, WED, FRI. WILL CONTINUE WITH PLAN OF CARE FOR THE DAY.
[2018-12-18 07:48] LABS: BASOPHILS # (AUTO) 0.1 K/uL (0.00-0.22); BASOPHILS % (AUTO) 0.9 % (0.0-2.0); EOSINOPHILS # (AUTO) 0.9 K/uL (0-0.4); EOSINOPHILS % (AUTO) 15.8 % (0.0-4.0); HEMATOCRIT 29.9 % (36-52); HEMOGLOBIN 10.2 g/dL (12.0-18.0); LYMPHOCYTES # (AUTO) 1.3 K/uL (2.0-11.5); LYMPHOCYTES % (AUTO) 21.2 % (20.5-51.1); MEAN CORPUSCULAR HEMOGLOBIN 34 pg (27-31); MEAN CORPUSCULAR HGB CONC 34 g/dL (33-37); MONOCYTES # (AUTO) 0.6 K/uL (0.8-1.0); MONOCYTES % (AUTO) 10.8 % (1.7-9.3); NEUTROPHILS # (AUTO) 3.1 K/uL (1.8-7.7); NEUTROPHILS % (AUTO) 51.3 % (42.2-75.2); PLATELET COUNT (AUTO) 143 K/uL (140-450); RED BLOOD CELL COUNT(AUTO) 3.02 MIL/uL (4.20-6.10)
[2018-12-18 07:56] LABS: CHOL/HDL RATIO 3.4 (1-4.5); PHOSPHORUS 4.8 mg/dL (2.5-4.9)
[2018-12-18 07:57] LABS: ANION GAP 15.5 (8-16); CARBON DIOXIDE 25.9 mmol/L (21-32); POTASSIUM 4.4 mmol/L (3.5-5.1)
[2018-12-18 08:00] VITALS: BP 115/92
[2018-12-18] MEDS: CALCIUM ACETATE 667 MG TAB PO SCH ×3 (08:00→17:00)
[2018-12-18] MEDS: MINOXIDIL 2.5 MG TAB PO SCH ×2 (08:05→20:33)
[2018-12-18] MEDS: METOPROLOL 50 MG TAB PO SCH ×2 (08:05→20:33)
[2018-12-18] MEDS: cloNIDine 0.1 MG TAB PO SCH ×2 (08:05→20:31)
[2018-12-18 08:11] LABS: CREATININE 7.2 mg/dL (0.7-1.3)
--- NOTE | 2018-12-18 08:12 | NUR ---
RECEIVED CRITICAL OF BUN 35 AND CREA 7.2. DID NOT NOTIFY D/T PT SCHEDULED TO HAVE DIALYSIS TODAY.
[2018-12-18] MEDS: BISACODYL 5 MG TABEC PO SCH ×2 (08:28→20:32)
[2018-12-18] MEDS: CINACALCET 30 MG TAB PO SCH ×2 (08:29→20:34)
--- NOTE | 2018-12-18 08:30 | NUR ---
ADMINISTERED MORNING MEDICATION. PATIENT REFUSED CALCIUM ACETATE AND STATED TO IT MAKING HIM CONSTIPATED. DID NOT ADMINISTER MORNING BLOOD PRESSURE MEDICATIONS D/T DIALYSIS TREATMENT TODAY AND BP THIS MORNING OF 115/92, OH 60. PATIENT REQUESTED ZOFRAN FOR NAUSEA, ADMINISTERED IVP
--- NOTE | 2018-12-18 08:36 | NUR ---
PATIENT HAS BEEN SCREENED AND CATEGORIZED MODERATE NUTRITION RISK. PATIENT WILL BE SEEN WITHIN 3-5 DAYS OF ADMISSION. 12/20/18 12/22/[address]
--- NOTE | 2018-12-18 09:56 | NUR ---
OBTAINED WRITTEN CONSENT FOR HEMODIALYSIS. DIALYSIS NURSE ALEX INFORMED ME TREATMENT WOULD BE LATER ON TODAY. INFORMED PATIENT THAT A SPUTUM CULTURE AND STOOL SAMPLE IS NEEDED. LEFT CUP FOR SPUTUM AT BEDSIDE AND HAT FOR OCCULT BLOOD IN RESTROOM. PATIENT VERBALIZED UNDERSTANDING.
--- NOTE | 2018-12-18 11:40 | NUR ---
BLOOD SUGAR OF 103. NO ACTION NEEDED.
--- NOTE | 2018-12-18 13:32 | NUR ---
PT HAD AN EPISODE OF VOMITING. ADMINISTERED ZOFRAN IVP FOR NAUSEA. IS AT BEDSIDE
--- NOTE | 2018-12-18 14:07 | NUR ---
PATIENT SLEEPING, FAMILY AT BEDSIDE, NO UNUSUAL OBSERVATION NOTED.
--- NOTE | 2018-12-18 14:46 | NUR ---
PT SLEEPING IN BED. VISIBLE CHEST RISE AND FALL. NO SIGNS OF RESPIRATORY DISTRESS
[2018-12-18 16:00] VITALS: BP 121/60
--- NOTE | 2018-12-18 16:46 | NUR ---
Weatherization Technician Note: Per patient, patient's sister Cira Boone, and patient's Maria M Sung, they have not talked to MD regarding patient's medical condition and would like to speak with MD. I informed of this, per , he will speak with them.
--- NOTE | 2018-12-18 17:05 | NUR ---
BLOOD SUGAR OF 130. NO INSULIN NEEDED.
[2018-12-18] MEDS: NACL 0.9% 1,000 ML IV SCH (18:00)
--- NOTE | 2018-12-18 18:45 | NUR ---
PATIENT IS FINISHING UP DIALYSIS, 3L REMOVED. FAMILY IS AT BEDSIDE. PATIENT CURRENTLY IS ON ROOM AIR. ALL NEEDS HAVE BEEN MET. WILL ENDORSE TO NIGHT RN
--- NOTE | 2018-12-18 19:24 | NUR ---
RECEIVED BEDSIDE REPORT FROM DAY SHIFT NURSE. PATIENT IS AWAKE, ALERT, AND COOPERATIVE. RESPIRATION EVEN UNLABORED ON ROOM AIR. SKIN IS WARM AND DRY. IV PATENT AND INTACT. LEFT AV SHUNT NOTED. PATIENT IS RIGHT BKA. PROSTHETIC LEG WITHIN REACH. PLAN OF CARE WAS DISCUSSED. ALL SAFETY MEASURES IN PLACE. BED IS AT LOW POSITION. CALL LIGHT WITHIN REACH AND VERBALIZES ITS USE. WILL CONTINUE TO MONITOR.
--- NOTE | 2018-12-18 20:00 | NUR ---
INITIAL ASSESSMENT DONE. VITALS WERE TAKEN. PATIENT IN STABLE CONDITION. FAMILY AT BEDSIDE. WILL CONTINUE TO MONITOR.
[2018-12-18] MEDS ORDERED: KETOROLAC 15 MG/ML VIAL ONE (20:28)
[2018-12-18] MEDS: KETOROLAC 15 MG/ML VIAL IVP PRN (20:30)
--- NOTE | 2018-12-18 20:30 | NUR ---
ALL SCHEDULED MEDS WERE GIVEN PER ORDER. PATIENT COMPLAINED OF RIGHT SHOULDER PAIN 8/. PRN PAIN MED ADMINISTERED PER ORDER. WILL CONTINUE TO MONITOR.
[2018-12-18] MEDS: DOCUSATE SODIUM 100 MG GELCAP PO SCH (20:32)
[2018-12-18] MEDS ORDERED: LEVOFLOXACIN 500 MG/D5W PREMIX 100 ML IV SCH (21:00)
--- NOTE | 2018-12-18 22:09 | NUR ---
PATIENT IN BED WATCHING TV RESPIRATION EVEN UNLABORED ON ROOM AIR. NO DISTRESS NOTED. WILL CONTINUE TO MONITOR.
[2018-12-19] VITALS: BP 110/65
--- NOTE | 2018-12-19 00:05 | NUR ---
VITALS WERE TAKEN. PATIENT IN STABLE CONDITION. WILL CONTINUE TO MONITOR.
--- NOTE | 2018-12-19 02:42 | NUR ---
CHECKED PATIENT. PATIENT SLEEPING RESPIRATION EVEN UNLABORED ON ROOM AIR. NO DISTRESS NOTED. WILL CONTINUE TO MONITOR.
--- NOTE | 2018-12-19 04:24 | NUR ---
CHECKED PATIENT. PATIENT SLEEPING RESPIRATION EVEN UNLABORED ON ROOM AIR. NO DISTRESS NOTED. WILL CONTINUE TO MONITOR.
[2018-12-19] MEDS: BLOOD GLUCOSE MONITORING 1 DEV DEV FS SCH ×4 (06:23→21:42)
--- NOTE | 2018-12-19 07:22 | NUR ---
ENDORSED PATIENT TO DAY SHIFT NURSE. PATIENT IN STABLE CONDITION.
--- NOTE | 2018-12-19 07:25 | NUR ---
RECEIVED REPORT FROM CUSTOMER SUCCESS DIRECTOR NURSE. PATIENT IS IN BED, AWAKE, ALERT, ORIENTED X4. NO C/O PAIN. IV INTACT TO RIGHT HAND. BED IN LOW POSITION. CALL LIGHT WITHIN REACH.
[2018-12-19 07:42] LABS: BASOPHILS % (AUTO) 0.7 % (0.0-2.0); EOSINOPHILS # (AUTO) 0.9 K/uL (0-0.4); EOSINOPHILS % (AUTO) 16.7 % (0.0-4.0); HEMATOCRIT 30.2 % (36-52); HEMOGLOBIN 10.1 g/dL (12.0-18.0); LYMPHOCYTES # (AUTO) 1.1 K/uL (2.0-11.5); LYMPHOCYTES % (AUTO) 20.9 % (20.5-51.1); MEAN CORPUSCULAR HEMOGLOBIN 33 pg (27-31); MEAN CORPUSCULAR HGB CONC 34 g/dL (33-37); MEAN CORPUSCULAR VOLUME 98.9 fL (80-94); MONOCYTES # (AUTO) 0.5 K/uL (0.8-1.0); MONOCYTES % (AUTO) 10.4 % (1.7-9.3); NEUTROPHILS # (AUTO) 2.6 K/uL (1.8-7.7); NEUTROPHILS % (AUTO) 51.3 % (42.2-75.2); PLATELET COUNT (AUTO) 150 K/uL (140-450); RED BLOOD CELL COUNT(AUTO) 3.06 MIL/uL (4.20-6.10); RED CELL DISTRIBUTION WIDTH 15.2 % (11.6-13.7); WHITE BLOOD COUNT (AUTO) 5.1 K/uL (4.8-10.8)
[2018-12-19 08:00] VITALS: BP 115/56
[2018-12-19] MEDS: CALCIUM ACETATE 667 MG TAB PO SCH ×3 (08:00→17:00)
--- NOTE | 2018-12-19 08:00 | NUR ---
Pt left unit via wheelchair for CT, accompanied by optical technician & spouse. Pt in no distress.
[2018-12-19 08:06] LABS: ANION GAP 13.5 (8-16); POTASSIUM 4.5 mmol/L (3.5-5.1)
[2018-12-19 08:11] LABS: CREATININE 5.9 mg/dL (0.7-1.3)
[2018-12-19 08:13] LABS: MAGNESIUM 1.8 mg/dL (1.8-2.4); PHOSPHORUS 4.4 mg/dL (2.5-4.9)
[2018-12-19 08:20] LABS: FERRITIN 1231 ng/mL (30-400)
[2018-12-19] MEDS ORDERED: SIMETHICONE 80 MG TAB.CHEW PO PRN (08:40)
--- NOTE | 2018-12-19 08:40 | NUR ---
Pt came back from CT via wheelchair, transferred back to bed with min assist. No c/o discomfort. Spouse left bedside. Call light within reach.
[2018-12-19] MEDS ORDERED: SIMETHICONE 80 MG TAB.CHEW PO SCH (09:00)
[2018-12-19] MEDS: METOPROLOL 50 MG TAB PO SCH ×2 (09:00→21:00)
[2018-12-19] MEDS: cloNIDine 0.1 MG TAB PO SCH ×2 (09:00→21:38)
[2018-12-19] MEDS: LACTOBACILLUS RHAMNOSUS GG 1 EACH CAP PO SCH (09:53)
[2018-12-19] MEDS: BISACODYL 5 MG TABEC PO SCH ×2 (09:53→21:37)
[2018-12-19] MEDS ORDERED: MINOXIDIL 10 MG TAB PO SCH (09:54)
[2018-12-19] MEDS: CINACALCET 30 MG TAB PO SCH ×2 (09:58→21:39)
--- NOTE | 2018-12-19 11:50 | NUR ---
PATIENT IS BED, BLOOD SUGAR CHECKED 111. NO COVERAGE NOTED. Addendum: 12/19/18 at 1200 by Artemio Fleming RN IN ADDITION TO ABOVE: PT. REFUSED RANDY, STATED "I DON'T TAKE THAT." EDUCATED ABOUT THE MEDICATION BENEFITS, VERBALIZED UNDERSTANDING.
--- NOTE | 2018-12-19 14:00 | NUR ---
Informed pt to remain NPO for abd ultrasound. Pt verbalized understanding.
[2018-12-19 16:00] VITALS: BP 112/48
[2018-12-19] MEDS: NACL 0.9% 1,000 ML IV SCH (18:00)
--- NOTE | 2018-12-19 18:00 | NUR ---
Dinner tray held for abd ultrasound. Pt verbalized understanding & agree with POC.
--- NOTE | 2018-12-19 19:05 | NUR ---
RECEIVED BEDSIDE REPORT FROM DAY SHIFT NURSE. PATIENT IS AWAKE, ALERT, AND COOPERATIVE. RESPIRATION EVEN UNLABORED ON ROOM AIR. SKIN IS WARM AND DRY. IV PATENT AND INTACT. LEFT AV SHUNT NOTED. PATIENT IS RIGHT BKA. PROSTHETIC LEG WITHIN REACH. PLAN OF CARE WAS DISCUSSED. FAMILY AT BEDSIDE. ALL SAFETY MEASURES IN PLACE. BED IS AT LOW POSITION. CALL LIGHT WITHIN REACH AND VERBALIZES ITS USE. WILL CONTINUE TO MONITOR.
--- NOTE | 2018-12-19 20:00 | NUR ---
INITIAL ASSESSMENT DONE. VITALS WERE TAKEN. PATIENT IN STABLE CONDITION. WILL CONTINUE TO MONITOR.
--- NOTE | 2018-12-19 21:00 | NUR ---
ALL SCHEDULED MEDS WERE GIVEN PER ORDER. NO ASE NOTED. WILL CONTINUE TO MONITOR.
[2018-12-19] MEDS: DOCUSATE SODIUM 100 MG GELCAP PO SCH (21:37)
[2018-12-19] MEDS: MINOXIDIL 10 MG TAB PO SCH (21:38)
--- NOTE | 2018-12-19 21:43 | NUR ---
PATIENT REFUSED METOPROLOL MEDICATION. PER PATIENT I DONT TAKE THAT MEDICATION AT HOME. EDUCATED THE RISK AND BENEFITS X2 STILL REFUSED.
[2018-12-19 22:20] LABS: TRANSFERRIN 112 mg/dL (200-370)
[2018-12-20] VITALS: BP 107/57
--- NOTE | 2018-12-20 00:12 | NUR ---
VITALS WERE TAKEN. PATIENT IN STABLE CONDITION. NO DISTRESS NOTED. WILL CONTINUE TO MONITOR.
--- NOTE | 2018-12-20 02:32 | NUR ---
CHECKED PATIENT. PATIENT SLEEPING RESPIRATION EVEN UNLABORED ON ROOM AIR. NO DISTRESS NOTED. WILL CONTINUE TO MONITOR.
--- NOTE | 2018-12-20 04:00 | NUR ---
PT HAD 7X BM -WATERY -TOOK BOWEL PREP SOLN. -FOR COLONOSCOPY Addendum: 12/22/18 at 0507 by Magalys Fields RN THE ABOVE NURSE'S NOTE IS AN ERROR ENTRY - MARK
--- NOTE | 2018-12-20 05:24 | NUR ---
AMBULATED PATIENT TO THE BATHROOM.
[2018-12-20] MEDS: BLOOD GLUCOSE MONITORING 1 DEV DEV FS SCH ×4 (06:10→21:21)
--- NOTE | 2018-12-20 07:19 | NUR ---
ENDORSED PATIENT TO DAY SHIFT NURSE. PATIENT IN STABLE CONDITION.
--- NOTE | 2018-12-20 07:21 | NUR ---
RECEIVED BEDSIDE REPORT FROM LEAD NURSE NURSE FOR CONTINUITY OF CARE. PATIENT IS AWAKE AND RESTING ON BED AT THIS TIME. PATIENT IS AAOX4. RESPIRATION EVEN AND UNLABORED ON RA. NO SIGNS OF DISTRESS NOTED. IV ON R HAND 24G, PATENT AND INTACT, SL. PATIENT IS CONTINENT AND AMBULATE WITH ASSIST. LEG SUPPORTED NOTED. LOW CLYDE SCORE, SKIN INTACT AND CLEAN. DISCUSSED PLAN OF CARE WITH PATIENT AND PATIENT VERBALIZED OK. SAFETY MEASURES IN PLACE. BED IN LOW POSITION AND CALL LIGHT WITHIN REACH. INSTRUCTED PATIENT TO USE THE CALL LIGHT FOR ANY ASSISTANCE AND PATIENT WAS AWARE.
--- NOTE | 2018-12-20 07:47 | NUR ---
PATIENT IS GOING TO HEMODIALYSIS. AUTOMOTIVE FUEL SYSTEMS CONVERTER KAY IS BY BEDSIDE. NPO EXCEPTS FOR MEDS POSTED ON DOOR. PATIENT WAS AWARE. NO SIGNS OF DISTRESS NOTED. SAFETY MEASURES IN PLACE. BED IN LOW POSITION AND CALL LIGHT WITHIN REACH.
[2018-12-20 07:51] LABS: BASOPHILS % (AUTO) 0.9 % (0.0-2.0); EOSINOPHILS # (AUTO) 0.8 K/uL (0-0.4); EOSINOPHILS % (AUTO) 14.7 % (0.0-4.0); HEMATOCRIT 30.8 % (36-52); HEMOGLOBIN 10.3 g/dL (12.0-18.0); LYMPHOCYTES # (AUTO) 1.1 K/uL (2.0-11.5); LYMPHOCYTES % (AUTO) 21.6 % (20.5-51.1); MEAN CORPUSCULAR HEMOGLOBIN 33 pg (27-31); MEAN CORPUSCULAR HGB CONC 34 g/dL (33-37); MEAN CORPUSCULAR VOLUME 99.3 fL (80-94); MONOCYTES # (AUTO) 0.6 K/uL (0.8-1.0); MONOCYTES % (AUTO) 11.6 % (1.7-9.3); NEUTROPHILS # (AUTO) 2.7 K/uL (1.8-7.7); NEUTROPHILS % (AUTO) 51.2 % (42.2-75.2); PLATELET COUNT (AUTO) 165 K/uL (140-450); RED BLOOD CELL COUNT(AUTO) 3.11 MIL/uL (4.20-6.10); RED CELL DISTRIBUTION WIDTH 15.4 % (11.6-13.7); WHITE BLOOD COUNT (AUTO) 5.3 K/uL (4.8-10.8)
[2018-12-20 08:00] VITALS: BP 109/64
[2018-12-20] MEDS: CALCIUM ACETATE 667 MG TAB PO SCH ×3 (08:00→17:00)
[2018-12-20] MEDS: BISACODYL 5 MG TABEC PO SCH ×2 (08:26→20:58)
[2018-12-20] MEDS: LACTOBACILLUS RHAMNOSUS GG 1 EACH CAP PO SCH (08:26)
[2018-12-20] MEDS: MINOXIDIL 10 MG TAB PO SCH ×2 (08:27→21:18)
[2018-12-20] MEDS: CINACALCET 30 MG TAB PO SCH ×2 (08:28→21:19)
--- NOTE | 2018-12-20 08:28 | NUR ---
ADMINISTERED MEDS PER MD ORDER, PATIENT REFUSED CALCIUM ACETATE AND SAID "I HAVEN'T TAKE THIS MED FOR A LONG TIME. I DON'T WANT IT." MED EDUCATION PROVIDED TO PATIENT AND PATIENT INSISTED NOT WANTING IT. RETURNED MED TO [facility]. UNABLE TO SCAN CINACALCET DUE TO UNKNOWN [facility] NUMBERS, MANUAL ENTERED. HOLD BP MEDS AT THIS TIME, DUE TO PATIENT IS IN DIALYSIS NOW. MEDS EDUCATION PROVIDED TO PATIENT AND PATIENT VERBALIZED UNDERSTANDING. PATIENT IS AWAKE AND DOING DIALYSIS. VISUAL EDUCATOR KAY IS BY BEDSIDE. NO SIGNS OF DISTRESS NOTED. SAFETY MEASURES IN PLACE. BED IN LOW POSITION AND CALL LIGHT WITHIN REACH. INSTRUCTED PATIENT TO USE THE CALL LIGHT FOR ANY ASSISTANCE AND PATIENT WAS AWARE.
[2018-12-20] MEDS: METOPROLOL 50 MG TAB PO SCH ×2 (09:00→20:59)
[2018-12-20] MEDS: cloNIDine 0.1 MG TAB PO SCH ×2 (09:00→20:58)
--- NOTE | 2018-12-20 09:45 | NUR ---
PATIENT IS IN DIALYSIS. NO SIGNS OF DISTRESS NOTED. SAFETY MEASURES IN PLACE.
[2018-12-20 10:24] LABS: ANION GAP 17.9 (8-16); CARBON DIOXIDE 25.3 mmol/L (21-32); POTASSIUM 4.2 mmol/L (3.5-5.1)
[2018-12-20 10:29] LABS: MAGNESIUM 1.8 mg/dL (1.8-2.4); PHOSPHORUS 4.7 mg/dL (2.5-4.9)
--- NOTE | 2018-12-20 10:30 | NUR ---
RECEIVED CRITICAL LAB CR 7.[address] PARKS, NO ORDER RECEIVED. PATIENT IS IN DIALYSIS AT THIS TIME.
--- NOTE | 2018-12-20 11:10 | NUR ---
PATIENT HAS FINISHED DIALYSIS AND RESTING ON BED AT THIS TIME. DENIED SOB, PAIN, AND DIZZINESS. NO SIGNS OF DISTRESS NOTED. SAFETY MEASURES IN PLACE. BED IN LOW POSITION AND CALL LIGHT WITHIN REACH.
--- NOTE | 2018-12-20 12:00 | NUR ---
DR AG AND DR PARKS ARE ASSESSING AND TALKING TO PATIENT AT BEDSIDE. NO SIGNS OF DISTRESS NOTED. SAFETY MEASURES IN PLACE.
--- NOTE | 2018-12-20 12:06 | NUR ---
CHECKED PATIENT'S BLOOD GLUCOSE AND RECEIVED 91, NO COVER NEEDED. PATIENT REFUSED CALCIUM ACETATE ANDMED EDUCATION PROVIDED TO PATIENT AND PATIENT INSISTED NOT WANTING IT. NPO ENFORCED AND EXPLAINED TO PATIENT THAT HE WILL BE GETTING HIDA SCAN IN THE AFTERNOON AND PATIENT VERBALIZED UNDERSTANDING. NPO SIGN POSTED ON DOOR. NO SIGNS OF DISTRESS NOTED. SAFETY MEASURES IN PLACE. BED IN LOW POSITION AND CALL LIGHT WITHIN REACH. INSTRUCTED PATIENT TO USE THE CALL LIGHT FOR ANY ASSISTANCE AND PATIENT WAS AWARE.
[2018-12-20] MEDS ORDERED: BOWEL EVACUANT DRINK 4,000 ML PDS PO SCH (13:00)
--- NOTE | 2018-12-20 13:10 | NUR ---
PATIENT AWAKE AND RESTING ON BED AT THIS TIME. NO SIGNS OF DISTRESS NOTED. SAFETY MEASURES IN PLACE.
[2018-12-20] MEDS: SENNA 8.6 MG TAB PO SCH ×2 (14:10→18:11)
[2018-12-20] MEDS: METOCLOPRAMIDE 10 MG/2 ML INJ VIAL IVP SCH ×2 (14:10→18:12)
[2018-12-20] MEDS: LACTULOSE 20 GM/30 ML UDC PO SCH ×3 (14:10→20:58)
--- NOTE | 2018-12-20 14:11 | NUR ---
ADMINISTERED MEDS PER MD ORDER, MEDS EDUCATION PROVIDED TO PATIENT AND PATIENT VERBALIZED UNDERSTANDING. CONSENTS OBTAINED AND PATIENT WAS AWARE OF PROCEDURE AND PROCEDURE PREPARED. PROVIDED BEDSIDE COMMODE REQUESTED AND ALSO INSTRUCTED PATIENT TO USE THE CALL LIGHT FOR ANY ASSISTANCE. PATIENT AWAKE AND TALKING TO VISITORS BY BEDSIDE. NO SIGNS OF DISTRESS NOTED. SAFETY MEASURES IN PLACE. BED IN LOW POSITION AND CALL LIGHT WITHIN REACH. INSTRUCTED PATIENT TO USE THE CALL LIGHT FOR ANY ASSISTANCE AND PATIENT SAID OK.
--- NOTE | 2018-12-20 14:34 | NUR ---
12/20/18 RD INITIAL ASSESSMENT COMPLETED PLEASE REFER TO NUTRITION ASSESSMENT UNDER CARE ACTIVITY FOR ESTIMATED NUTRITIONAL NEEDS. 1. CONTINUE NPO TOLERATED 2. IF/WHEN MEDICALLY APPROPRIATE TO BEGIN NUTRITION, ADVANCE DIET TOLERATED TO RENAL, CCHO DIET 3. RD TO FOLLOW-UP 2-3 DAYS, HIGH RISK [address]
--- NOTE | 2018-12-20 15:45 | NUR ---
PATIENT IS OFF UNIT TO HIDA SCAN IN RADIOLOGY DEPARTMENT. PATIENT IS IN STABLE CONDITION.
[2018-12-20 16:00] VITALS: BP 110/60
[2018-12-20] MEDS ORDERED: MORPHINE SULFATE 2 MG/ML SYR IVP SCH (16:38)
--- NOTE | 2018-12-20 16:47 | NUR ---
ADMINISTERED 2MG/1ML MORPHINE VIA IVP FOR HIDA SCAN, MED EDUCATION PROVIDED AND PATIENT VERBALIZED UNDERSTANDING. NO SIGNS OF DISTRESS NOTED. RADIOLOGIST IS BY PATIENT' SIDE.
--- NOTE | 2018-12-20 18:00 | NUR ---
PATIENT CAME BACK TO UNIT. FAMILY BY BEDSIDE. NO SIGNS OF DISTRESS NOTED. SAFETY MEASURES IN PLACE.
[2018-12-20] MEDS: NACL 0.9% 1,000 ML IV SCH (18:12)
--- NOTE | 2018-12-20 18:12 | NUR ---
ADMINISTERED MEDS PER MD ORDER, MEDS EDUCATION PROVIDED TO PATIENT AND PATIENT VERBALIZED UNDERSTANDING. PATIENT REFUSED CALCIUM PHLO AND STATED "LIKE I TOLD YOU MANY TIMES, I DON'T TAKE IT FOR YEARS." PATIENT AWAKE AND TALKING TO VISITORS BY BEDSIDE. NO SIGNS OF DISTRESS NOTED. SAFETY MEASURES IN PLACE. BED IN LOW POSITION AND CALL LIGHT WITHIN REACH. INSTRUCTED PATIENT TO USE THE CALL LIGHT FOR ANY ASSISTANCE AND PATIENT SAID OK.
[2018-12-20 18:48] LABS: PROTHROMBIN TIME 10.7 secs (10.8-13.4)
--- NOTE | 2018-12-20 19:17 | NUR ---
ENDORSED PATIENT AT BEDSIDE TO INDIVIDUAL PENSION ADVISER NURSE FOR CONTINUITY OF CARE. PATIENT AWAKE AND RESTING ON BED AT THIS TIME. NO SIGNS OF DISTRESS NOTED. PATIENT IS IN STABLE CONDITION. SAFETY MEASURES IN PLACE. BED IN LOW POSITION AND CALL LIGHT WITHIN REACH.
--- NOTE | 2018-12-20 19:17 | NUR ---
RECUIEVED PT AAOX4 ,NID WITH C/O ABDL. PAIN - BEARABLE PAIN AT THIS TIME PT. SAID. IV SITE INTACT AND PATENT , WITH AV SHUNT ON LEFT ARM , RIGHT BKA - USING LEG PROSTHESIS AND WALKER HIS AID FOR WALKING .- CALL LIGHT WITHIN REACH - ON BOWEL PREP FOR COLONOSCOPY GEE. - CONSENT SIGNED , FOR PARACENTESIS GEE - CONSENT SIGNED.PLAN OF CARE DISCUSSED AND VERBALIZE UNDERSTANDING . ON SAFETY / FALL PRECAUTION PROTOCOL - BED ALARM ON . REMINDS HIM THE USE OF CALL LIGHT IF HE NEEDED ASSISTANCE .ON NPO POST MIDNIGHT . WILL CONT. TO MONITOR.
[2018-12-20] MEDS: DOCUSATE SODIUM 100 MG GELCAP PO SCH (20:58)
[2018-12-20] MEDS ORDERED: MAGNESIUM CITRATE 300 ML BTL PO SCH (21:00)
[2018-12-20] MEDS ORDERED: LEVOFLOXACIN 250 MG/D5 PREMIX 50 ML IV SCH (21:00)
--- NOTE | 2018-12-20 22:00 | NUR ---
MADE ROUNDS , NO SIGNS OF DISTRESS NOTED AT THIS TIME - CCALL LIGHT WITHIN REACH.
[2018-12-20] MEDS: KETOROLAC 15 MG/ML VIAL IVP PRN (23:33)
[2018-12-21] VITALS: BP 112/60
--- NOTE | 2018-12-21 | NUR ---
MADE ROUNDS . NO SIGNS OF DISTRESS NOTED AT THIS TIME , CALL LIGHT WITHIN REACH.
--- NOTE | 2018-12-21 00:10 | NUR ---
FUNMILAYO FROM [facility] CALLED - PT FOR SCHEDULED HD - CONFIRMED. Addendum: 12/22/18 at 0511 by Magalys Fields RN THE TIME AND THE DATE OF THE ABOVE NURSE'S NOTE ENTRY IS AN ERROR . THE ABOVE NURSE'S NOTE DATED 12/22/18 AT 0010 -MNURLR
[2018-12-21] MEDS: DEXT 5% /NACL 0.9% 1,000 ML IV SCH ×2 (00:16→23:45)
[2018-12-21] MEDS: BLOOD GLUCOSE MONITORING 1 DEV DEV FS SCH ×4 (05:29→20:28)
[2018-12-21 07:18] LABS: HEPATITIS A ANTIBODY IGM Negative (Negative); HEPATITIS B SURFACE ANTIBODY Reactive (.); HEPATITIS B SURFACE ANTIGEN Negative (Negative)
--- NOTE | 2018-12-21 07:30 | NUR ---
RECEIVED BEDSIDE REPORT FROM PEDIATRIC ONCOLOGIST NURSE FOR CONTINUITY OF CARE. PATIENT IS AWAKE AND RESTING ON BED AT THIS TIME. PATIENT IS AAOX4. RESPIRATION EVEN AND UNLABORED ON RA. NO SIGNS OF DISTRESS NOTED. IV ON R WRIST 24G, PATENT AND INTACT, INFUSING PER MD ORDER. PATIENT IS CONTINENT AND AMBULATE WITH ASSIST.R BKA NOTED AND R LEG CAST NOTED. SKIN INTACT AND CLEAN. DISCUSSED PLAN OF CARE WITH PATIENT AND PATIENT VERBALIZED UNDERSTANDING. SAFETY MEASURES IN PLACE. BED IN LOW POSITION AND CALL LIGHT WITHIN REACH. INSTRUCTED PATIENT TO USE THE CALL LIGHT FOR ANY ASSISTANCE AND PATIENT WAS AWARE.
[2018-12-21 07:39] LABS: EOSINOPHILS # (AUTO) 0.6 K/uL (0-0.4); EOSINOPHILS % (AUTO) 13.8 % (0.0-4.0); HEMATOCRIT 30.8 % (36-52); HEMOGLOBIN 10.3 g/dL (12.0-18.0); LYMPHOCYTES # (AUTO) 1.1 K/uL (2.0-11.5); LYMPHOCYTES % (AUTO) 24.9 % (20.5-51.1); MEAN CORPUSCULAR HEMOGLOBIN 33 pg (27-31); MEAN CORPUSCULAR HGB CONC 33 g/dL (33-37); MEAN CORPUSCULAR VOLUME 99.1 fL (80-94); MONOCYTES # (AUTO) 0.5 K/uL (0.8-1.0); MONOCYTES % (AUTO) 10.7 % (1.7-9.3); NEUTROPHILS # (AUTO) 2.1 K/uL (1.8-7.7); NEUTROPHILS % (AUTO) 49.6 % (42.2-75.2); PLATELET COUNT (AUTO) 164 K/uL (140-450); RED CELL DISTRIBUTION WIDTH 15.1 % (11.6-13.7); WHITE BLOOD COUNT (AUTO) 4.3 K/uL (4.8-10.8)
[2018-12-21 08:00] VITALS: BP 102/49
[2018-12-21] MEDS: CALCIUM ACETATE 667 MG TAB PO SCH ×3 (08:00→17:00)
[2018-12-21 08:02] LABS: ANION GAP 9.9 (8-16); CARBON DIOXIDE 31.1 mmol/L (21-32)
[2018-12-21 08:04] LABS: CREATININE 5.5 mg/dL (0.7-1.3)
--- NOTE | 2018-12-21 08:05 | NUR ---
DR PARKS IS TALKING AND ASSESSING PATIENT AT BEDSIDE. INFORMED DR PARKS THAT PATIENT HAS BEEN REFUSED TO TAKE THE CALCIUM ACETATE, DR PARKS WAS AWARE. PER DR PARKS, HOLD ALL BP MEDS IF PATIENT'S BP IS LOW THIS AM, AND ADMINISTER THE REST OF THE AM MEDS. NO SIGNS OF DISTRESS NOTED. SAFETY MEASURES IN PLACE.
[2018-12-21 08:07] LABS: MAGNESIUM 1.8 mg/dL (1.8-2.4); PHOSPHORUS 3.8 mg/dL (2.5-4.9)
--- NOTE | 2018-12-21 08:10 | NUR ---
NOTIFIED DR PARKS OF [facility] OF CR 5.5, DR PARKS WAS AWARE AND NO ORDER RECEIVED AT THIS TIME.
--- NOTE | 2018-12-21 08:40 | NUR ---
PATIENT AWAKE AND TALKING TO [place] BY BEDSIDE. PATIENT WAS AWARE THAT HE IS GOING TO GET COLONOSCOPY WITH DR AG AROUND [id number]. PATIENT IS RESTING ON BED AT THIS TIME. NO SIGNS OF DISTRESS NOTED. SAFETY MEASURES IN PLACE. BED IN LOW POSITION AND CALL LIGHT WITHIN REACH. INSTRUCTED PATIENT TO USE THE CALL LIGHT FOR ANY ASSISTANCE AND PATIENT WAS AWARE.
--- NOTE | 2018-12-21 09:11 | NUR ---
PATIENT IS OFF UNIT TO COLONOSCOPY ACCOMPANIED BY GI NURSE JONNY. PATIENT IS IN STABLE CONDITION.
[2018-12-21] MEDS ORDERED: MIDAZOLAM 2 MG/2 ML VIAL ONE (09:22)
[2018-12-21] MEDS ORDERED: fentaNYL 0.05 MG/ML VIAL ONE (09:22)
[2018-12-21] MEDS ORDERED: diphenhydrAMINE 50 MG/ML VIAL ONE (09:22)
--- NOTE | 2018-12-21 10:10 | NUR ---
PATIENT CAME BACK TO UNIT ACCOMPANIED BY OR NURSE FULLER. VITAL SIGNS TAKEN, TEMP 97.8, BP 113/51, PULSE 73, SPO2 95% RA, RR 18, DENIED PAIN. PATIENT IS RESTING ON BED AT THIS TIME. NO SIGNS OF DISTRESS NOTED. SAFETY MEASURES IN PLACE. BED IN LOW POSITION AND CALL LIGHT WITHIN REACH. INSTRUCTED PATIENT TO USE THE CALL LIGHT FOR ANY ASSISTANCE AND PATIENT WAS AWARE.
--- NOTE | 2018-12-21 10:17 | NUR ---
DR KEITA IS TALKING AND ASSESSING PATIENT AT BEDSIDE. NO SIGNS OF DISTRESS NOTED.
[2018-12-21] MEDS ORDERED: MIDAZOLAM 2 MG/2 ML VIAL IVP ONE (10:25)
[2018-12-21] MEDS ORDERED: fentaNYL 0.05 MG/ML VIAL IVP ONE (10:25)
[2018-12-21] MEDS: BISACODYL 5 MG TABEC PO SCH ×2 (10:27→20:27)
[2018-12-21] MEDS: LACTOBACILLUS RHAMNOSUS GG 1 EACH CAP PO SCH (10:27)
[2018-12-21] MEDS: CINACALCET 30 MG TAB PO SCH ×2 (10:28→22:07)
[2018-12-21] MEDS: MINOXIDIL 10 MG TAB PO SCH ×2 (10:28→22:06)
--- NOTE | 2018-12-21 10:29 | NUR ---
ADMINISTERED SCHEDULED AM MEDS AND HOLD ALL BP MEDS PER MD ORDER, MEDS EDUCATION PROVIDED TO PATIENT AND PATIENT VERBALIZED UNDERSTANDING. PATIENT IS RESTING ON BED AT THIS TIME. NO SIGNS OF DISTRESS NOTED. SAFETY MEASURES IN PLACE. BED IN LOW POSITION AND CALL LIGHT WITHIN REACH. INSTRUCTED PATIENT TO USE THE CALL LIGHT FOR ANY ASSISTANCE AND PATIENT WAS AWARE.
--- NOTE | 2018-12-21 11:20 | NUR ---
PER DR ORDER TO TRANSFER TO SNF, [facility] ACCE[facility]ED PT AND CAN GO TO ROOM 102 A ,[facility] ARRANGE TRANSPORT CM TO FOLLOW
--- NOTE | 2018-12-21 11:50 | NUR ---
DR CRUZ AND MACHINE PACKAGER AMNA ARE BY BEDSIDE FOR PARACENTESIS. TOOK OF 1450 ML RED FLUID AND DELIVERED 2 BOTTLES TO LAB. PATIENT IS RESTING ON BED AT THIS TIME. ROMÁN IS BY BEDSIDE. NO SIGNS OF DISTRESS NOTED. SAFETY MEASURES IN PLACE. BED IN LOW POSITION AND CALL LIGHT WITHIN REACH. INSTRUCTED PATIENT TO USE THE CALL LIGHT FOR ANY ASSISTANCE AND BOTH ARE AWARE.
[2018-12-21 13:42] LABS: HEPATITIS B CORE AB TOTAL Positive (NEGATIVE)
[2018-12-21] MEDS: PROPRANOLOL 20 MG TAB PO SCH ×2 (13:42→17:29)
--- NOTE | 2018-12-21 13:42 | NUR ---
CHECKED BP AND RECEIVED 133/67, PULSE 72, ADMINISTERED SCHEDULED MED PER MD ORDER, MEDS EDUCATION PROVIDED TO PATIENT AND PATIENT VERBALIZED UNDERSTANDING. PATIENT IS RESTING ON BED AT THIS TIME. IS BY BEDSIDE. NO SIGNS OF DISTRESS NOTED. SAFETY MEASURES IN PLACE. BED IN LOW POSITION AND CALL LIGHT WITHIN REACH. INSTRUCTED PATIENT TO USE THE CALL LIGHT FOR ANY ASSISTANCE AND PATIENT WAS AWARE.
--- NOTE | 2018-12-21 15:15 | NUR ---
PATIENT IS RESTING ON BED AT THIS TIME. DENIED PAIN, SOB, AND DIZZINESS. NO SIGNS OF DISTRESS NOTED. SAFETY MEASURES IN PLACE. BED IN LOW POSITION AND CALL LIGHT WITHIN REACH. BED ALARM ACTIVATED.
[2018-12-21 16:00] VITALS: BP 98/50
--- NOTE | 2018-12-21 16:27 | NUR ---
DR PARKS IS TALKING TO PATIENT AT BEDSIDE. NO SIGNS OF DISTRESS NOTED.
[2018-12-21 17:05] LABS: APPEARANCE,SPUN,BODY FLUID BLOODY (CLEAR); APPEARANCE,UNSPUN,BODY FLUID BLOODY (CLEAR); SPECIMENTYPE,BODY FLUID ASCITES
[2018-12-21 17:06] LABS: COLOR,BODY FLUID RED (LT YELLOW); TOTAL VOLUME,BODY FLUID 1500 mL
[2018-12-21] MEDS: FERROUS SULFATE 325 MG TABEC PO SCH (17:28)
--- NOTE | 2018-12-21 17:29 | NUR ---
CHECKED BP AND RECEIVED 120/65, PULSE 68, ADMINISTERED SCHEDULED MEDS PER MD ORDER, MEDS EDUCATION PROVIDED TO PATIENT AND PATIENT VERBALIZED UNDERSTANDING. PATIENT REFUSED TO TAKE CALCIUM ACETATE. PATIENT IS RESTING ON BED AT THIS TIME. NO SIGNS OF DISTRESS NOTED. SAFETY MEASURES IN PLACE. BED IN LOW POSITION AND CALL LIGHT WITHIN REACH. INSTRUCTED PATIENT TO USE THE CALL LIGHT FOR ANY ASSISTANCE AND PATIENT WAS AWARE
[2018-12-21 18:01] LABS: GLUCOSE,BODY FLUID 92 mg/dL
[2018-12-21 19:17] LABS: RBC, BODY FLUID 7533 /cu. mm.; WBC, BODY FLUID 122 /cu. mm.
[2018-12-21 19:18] LABS: POLYNUCLEAR, BODY FLUID 65 %
--- NOTE | 2018-12-21 19:27 | NUR ---
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 ON SAFETY / FALL PRECAUTION PROTOCOL - BED ALARM ON , REMINDS THE USE OF CALL LIGHT WHEN EVER HE NEEDED ASSISTANCE - FALL RISK . PLAN OF CARE DISCUSSED AND VERBALIZE UNDERSTANDING - CALL LIGHT WITHIN REACH . WITH AV SHUNT ONL L UPPER ARM - ON SCHEDULED HD GEE . WILL CONT. TO MONITOR.
--- NOTE | 2018-12-21 19:27 | NUR ---
ENDORSED PATIENT AT BEDSIDE TO LETTER STAMPING MACHINE OPERATOR NURSE FOR CONTINUITY OF CARE. PATIENT AWAKE AND RESTING ON BED. NO SIGNS OF DISTRESS NOTED. SAFETY MEASURES IN PLACE. BED IN LOW POSITION AND CALL LIGHT WITHIN REACH. FALL RISK PROTOCOL IN PLACE AND BED ALARM ACTIVATED.
[2018-12-21] MEDS: DOCUSATE SODIUM 100 MG GELCAP PO SCH (20:27)
[2018-12-21] MEDS ORDERED: cloNIDine 0.1 MG TAB PO SCH (21:00)
--- NOTE | 2018-12-21 22:00 | NUR ---
MADE ROUNDS , NO SIGNS OF DISTRESS NOTED AT THIS TIME . WILL CONT. TO MONITOR.
[2018-12-21] MEDS: KETOROLAC 15 MG/ML VIAL IVP PRN (22:26)
--- NOTE | 2018-12-21 22:26 | NUR ---
C/O PAIN HE SAID 09/30 -BP 110/60 - TORADOL TIV GIVEN ORDERED.WILL CONT. TO MONITOR. PT HAD 4X OF BOUT OF WATERY BM FROM 7PM.
[2018-12-22] VITALS: BP 100/60
--- NOTE | 2018-12-22 | NUR ---
BP RE CHECKED 100/60 , AL 60 PER V/S MACHINE - O2 SAT 95% - NO FURTHER COMPLAIN EXCEPTS PAIN WHICH BEARABLE AT THIS TIME HE SAID AND MORE FREQUENT BM - WATERY - WILL CONT. TO MONITOR.
--- NOTE | 2018-12-22 02:00 | NUR ---
BP RE CHECKED 90/60 MMHG , AR 59 /MIN - ASYMPTOMATIC , PT. COMFORTABLY RESTING ON BED , NO C/O MADE AT THIS TIME.WILL CONT. TO MONITOR.
--- NOTE | 2018-12-22 04:00 | NUR ---
BP RE CHECKED 90/53 MMHG MEAN 67 , TX 53 PER V/S MACHINE NO COMPLAIN MADE AT THIS TIME - ASYMPTOMATIC . O2 SAT 92% - INFORMED CHARGE NURSE FAIRY ABOUT THE DECREASING BP AND TX.WILL CONT. TO MONITOR.
--- NOTE | 2018-12-22 06:00 | NUR ---
LAB STAFF AT BEDSIDE COLLECTING BLOOD . BP RE CHECKED 90/60 - AZ 60 - ASYMPTOMATIC , NO COMPLAIN MADE AT THIS TIME.
[2018-12-22 06:05] LABS: BASOPHILS % (AUTO) 0.8 % (0.0-2.0); EOSINOPHILS # (AUTO) 0.8 K/uL (0-0.4); EOSINOPHILS % (AUTO) 15.7 % (0.0-4.0); HEMATOCRIT 29.2 % (36-52); HEMOGLOBIN 9.7 g/dL (12.0-18.0); LYMPHOCYTES # (AUTO) 1.2 K/uL (2.0-11.5); LYMPHOCYTES % (AUTO) 24.5 % (20.5-51.1); MEAN CORPUSCULAR HEMOGLOBIN 33 pg (27-31); MEAN CORPUSCULAR HGB CONC 33 g/dL (33-37); MEAN CORPUSCULAR VOLUME 99.5 fL (80-94); MONOCYTES # (AUTO) 0.5 K/uL (0.8-1.0); MONOCYTES % (AUTO) 10.5 % (1.7-9.3); NEUTROPHILS # (AUTO) 2.3 K/uL (1.8-7.7); NEUTROPHILS % (AUTO) 48.5 % (42.2-75.2); PLATELET COUNT (AUTO) 163 K/uL (140-450); RED BLOOD CELL COUNT(AUTO) 2.94 MIL/uL (4.20-6.10); RED CELL DISTRIBUTION WIDTH 15.5 % (11.6-13.7); WHITE BLOOD COUNT (AUTO) 4.8 K/uL (4.8-10.8)
[2018-12-22 06:58] LABS: CARBON DIOXIDE 27.3 mmol/L (21-32); POTASSIUM 4.3 mmol/L (3.5-5.1)
[2018-12-22 07:02] LABS: MAGNESIUM 1.8 mg/dL (1.8-2.4); PHOSPHORUS 3.9 mg/dL (2.5-4.9)
--- NOTE | 2018-12-22 07:30 | NUR ---
ENDORSED TO AM SHIFT . WIT LBP 90/60 NO LBM SINCE 2299 .
--- NOTE | 2018-12-22 07:30 | NUR ---
RECEIVED BEDSIDE REPORT FROM SPLUNK DASHBOARD DEVELOPER NURSE FOR CONTINUITY OF CARE. PATIENT IS AWAKE AND RESTING ON BED AT THIS TIME. PATIENT IS AAOX4. RESPIRATION EVEN AND UNLABORED ON RA. NO SIGNS OF DISTRESS NOTED. IV ON R WRIST 24G, PATENT AND INTACT, INFUSING PER MD ORDER. PATIENT IS CONTINENT AND AMBULATE WITH ASSIST.R BKA NOTED AND R LEG CAST NOTED. SKIN INTACT AND CLEAN. DISCUSSED PLAN OF CARE WITH PATIENT AND PATIENT VERBALIZED UNDERSTANDING. SAFETY MEASURES IN PLACE. BED IN LOW POSITION AND CALL LIGHT WITHIN REACH. INSTRUCTED PATIENT TO USE THE CALL LIGHT FOR ANY ASSISTANCE AND PATIENT WAS AWARE.
[2018-12-22 07:43] LABS: CREATININE 6.5 mg/dL (0.7-1.3)
--- NOTE | 2018-12-22 07:50 | NUR ---
RECEIVED CRITICAL LAB OF CR 6.5, REPORTED TO DR PARKS. DR PARKS WAS AWARE AND AWARE THAT PATIENT IS SCHEDULED FOR DIALYSIS TODAY.
[2018-12-22 08:00] VITALS: BP 105/49
[2018-12-22] MEDS: CALCIUM ACETATE 667 MG TAB PO SCH ×2 (08:00→12:00)
[2018-12-22] MEDS: BLOOD GLUCOSE MONITORING 1 DEV DEV FS SCH ×2 (08:07→12:02)
[2018-12-22] MEDS: FERROUS SULFATE 325 MG TABEC PO SCH (08:43)
[2018-12-22] MEDS: LACTOBACILLUS RHAMNOSUS GG 1 EACH CAP PO SCH (08:44)
[2018-12-22] MEDS: BISACODYL 5 MG TABEC PO SCH (08:44)
[2018-12-22] MEDS: PROPRANOLOL 20 MG TAB PO SCH ×2 (08:45→13:00)
[2018-12-22] MEDS: MINOXIDIL 10 MG TAB PO SCH (08:45)
[2018-12-22] MEDS: CINACALCET 30 MG TAB PO SCH (08:46)
--- NOTE | 2018-12-22 08:46 | NUR ---
CHECKED BP AND RECEIVED 116/53, PULSE 60, HOLD BP MEDS DUE TO PATIENT IS GOING TO HAVE DIALYSIS TODAY. PATIENT REFUSED CALCIUM ACETATE, EDUCATION PROVIDED, BUT PATIENT INSISTED NOT WANT TO TAKE MED. ADMINISTERED SCHEDULED MEDS PER MD ORDER, MEDS EDUCATION PROVIDED TO PATIENT AND PATIENT VERBALIZED UNDERSTANDING. UNABLE TO SCAN SENISIPAR DUE TO UNKNOWN [facility], [employer]. PATIENT IS WATCHING TV AND RESTING ON BED AT THIS TIME. NO SIGNS OF DISTRESS NOTED. SAFETY MEASURES IN PLACE. BED IN LOW POSITION AND CALL LIGHT WITHIN REACH. INSTRUCTED PATIENT TO USE THE CALL LIGHT FOR ANY ASSISTANCE AND PATIENT WAS AWARE
[2018-12-22] MEDS ORDERED: LACTULOSE 20 GM/30 ML UDC PO SCH (09:00)
[2018-12-22] MEDS ORDERED: FER325 PO (09:02)
[2018-12-22] MEDS ORDERED: LACT10CA PO (09:02)
[2018-12-22] MEDS ORDERED: PROP20TA29 PO (09:02)
[2018-12-22] MEDS ORDERED: DOCU-299 PO (09:02)
[2018-12-22] MEDS ORDERED: [UNRECOGNIZED DRUG - CODE] PO (09:02)
--- NOTE | 2018-12-22 09:45 | NUR ---
PATIENT IS PARTICIPATING IN PHYSICAL THERAPY SESSION. NO SIGNS OF DISTRESS NOTED.
--- NOTE | 2018-12-22 09:55 | NUR ---
PER PT HIS HD SCHEDULE OUT PT IS SCHEDULED AT 0900 HRS TODAY, SO HE SAID HE ALREADY MISSED IT AND THAT HE PREFERS TO HAVE HD DONE HERE IN THE HOSPITAL THEN HE WILL GO HOME AFTER. PT ALSO STATED THAT HIS WILL E AVAILABLE TO PICK HIM UP AROUND 3PM TODAY.
--- NOTE | 2018-12-22 10:50 | NUR ---
WOUND CARE EVALUATION TO THIS 58 Y/O WITH HX OF MULTIPLE AMPUTATION. PT. WITH OPEN WOUND TO RIGHT 3RD FINGER. PT. ADMITTED WITH THIS OPEN WOUND PT. STATED THERE WERE 2 OPEN BLISTERS, IT WAS NOT A BURN AND HE NOTICED IT AT DIALYSIS CENTER. HAS BEEN CARING FOR IT AT HOME. TODAY'S ASSESSMENT,PARTIAL THICKNESS LOSS OF SKIN, 2 WOUNDS DIFFUSED TO ONE OPEN AREA, 3X1CM WITH SUPERFICIAL DEPTH, WOUND BED IS PINK AND MOIST, NO ODOR, NO S/S OF INFECTION, BRIGITTE-WOUND SKIN INTACT. PAIN 0/10. RECOMMENDATION: TO CLEANSE RIGHT 3RD FINGER WITH NS, PAT DRY,APPLY ADAPTIC DRESSING AND COVER WITH DRY DRESSING Q --.
--- NOTE | 2018-12-22 11:07 | NUR ---
PATIENT IS SITTING UP ON CHAIR AT THIS TIME. DIALYSIS JOHNSON RN IS BY BEDSIDE. NO SIGNS OF DISTRESS NOTED.
--- NOTE | 2018-12-22 11:15 | NUR ---
CANCELED SNF PLACEMENT PER PATIENT REFUSAL AND CALLED [facility] AT [phone] SPOKE WITH [employer] AND FAXED ALL INFO TO [facility] AT [phone].
--- NOTE | 2018-12-22 13:15 | NUR ---
PATIENT IS IN DIALYSIS AT THIS TIME. ALEX RN IS BY BEDSIDE. NO SIGNS OF DISTRESS NOTED. SAFETY MEASURES IN PLACE. BED IN LOW POSITION AND CALL LIGHT WITHIN REACH. FALL RISK PROTOCOL IN PLACE AND BED ALARM ACTIVATED. INSTRUCTED PATIENT TO USE THE CALL LIGHT FOR ANY ASSISTANCE AND PATIENT WAS AWARE.
[2018-12-22] MEDS ORDERED: INFLUENZA VACCINE QUAD 0.5 ML SYR IMVAC PRN (13:30)
[2018-12-22] MEDS ORDERED: PNEUMOCOCCAL VACCINE 23 MCG/0.5 ML VIAL IMVAC SCH (14:00)
--- NOTE | 2018-12-22 14:25 | NUR ---
ADMINISTERED PNA VACCINE, PATIENT TOLERATED WELL. VACCINATION EDUCATION PROVIDED TO PATIENT, PATIENT VERBALIZED UNDERSTANDING. NO SIGNS OF DISTRESS NOTED. PATIENT IS IN DIALYSIS. DIALYSIS JOHNSON RN IS BY BEDSIDE. SAFETY MEASURES IN PLACE.
--- NOTE | 2018-12-22 15:41 | NUR ---
Commercial Leasing Agent Note: Per , he spoke with patient and patient's family and they are in agreement with [facility]. Per Lois from [facility] , they can accept referral and will send a nurse to patient's home. Lois is aware patient will be discharged today.
--- NOTE | 2018-12-22 15:43 | NUR ---
PATIENT DENIED THAT HE IS ALLERGY TO EGGS, AVOCADO, BANANA AND SAID "I GOT FLU VACCINE BEFORE. I HAVE NO BAD REACTION." ADMINISTERED FLU VACCINE, PATIENT TOLERATED WELL. VACCINATION EDUCATION PROVIDED TO PATIENT, PATIENT VERBALIZED UNDERSTANDING. NO SIGNS OF DISTRESS NOTED. AWAITING FOR ROMÁN THE TO ARRIVE FOR DC. SAFETY MEASURES IN PLACE. BED IN LOW POSITION AND CALL LIGHT WITHIN REACH. INSTRUCTED PATIENT TO USE THE CALL LIGHT FOR ANY ASSISTANCE AND PATIENT WAS AWARE.
--- NOTE | 2018-12-22 16:01 | NUR ---
DISCHARGE INSTRUCTION PROVIDED TO PATIENT AT BEDSIDE. EDUCATED PATIENT ON MD FOLLOW UP, SEEK MEDICAL HELP IN CASE OF MEDICAL EMERGENCY, WOUND CARE, MEDICATION MANAGEMENT AND SIDE EFFECTS, DISEASE MANAGEMENT, AND DIET. ANSWERED ALL PATIENT'S QUESTIONS AND PATIENT VERBALIZED UNDERSTANDING. EDUCATED PATIENT ON HOW TO DO WOUND CARE ON HIS FINGER AND PROVIDED WOUND CARE SUPPLIES, PATIENT VERBALIZED UNDERSTANDING. WOUND CARE PICTURE TAKEN. REMOVED IV, CANNULA INTACT AND NO BLEEDING AT IV SITE. REMOVED ALL ARM BANDS. PATIENT'S ROMÁN CHECKED ALL THE CABINET AND TOOK ALL PATIENT'S BELONGING. PATIENT WAS AWARE THAT HIS PRESCRIPTION HAS SENT TO HIS PREFERRED PHARMACY AND FOLLOW UP APPOINTMENTS HAS BEEN SCHEDULED WITH HIS PCP AND DR AG. PATIENT CHANGED INTO HIS OWN CLOTHES. FISH SKINNING MACHINE FEEDER WHEELCHAIR PATIENT TO THE FRONT LOBBY. PATIENT IS GOING TO DISCHARGE ACCOMPANIED BY HIS AND DAUGHTER. PATIENT IS IN STABLE CONDITION.
[2018-12-25] MEDS ORDERED: NON ADHERENT DRESSING TP SCH (09:00)
== END 2018-12-22 16:01 | disposition home health service (06) | DRG 388 ==
LOC: MED 12:33 → MTU 15:39
PROVIDERS: ADMIT General Practice; ATTEND General Practice
PROC: 5A1D70Z Performance of Urinary Filtration, Intermittent, Less than 6 Hours Per Day (ICD-10-PCS; 2018-12-18)
PROC: 5A1D70Z Performance of Urinary Filtration, Intermittent, Less than 6 Hours Per Day (ICD-10-PCS; 2018-12-20)
PROC: 0W9G3ZZ Drainage of Peritoneal Cavity, Percutaneous Approach (ICD-10-PCS; 2018-12-21)
PROC: 0DJD8ZZ Inspection of Lower Intestinal Tract, Via Natural or Artificial Opening Endoscopic (ICD-10-PCS; 2018-12-21)
PROC: 0DB68ZX Excision of Stomach, Via Natural or Artificial Opening Endoscopic, Diagnostic (ICD-10-PCS; principal; 2018-12-21 09:15)
PROC: 3E02340 Introduction of Influenza Vaccine into Muscle, Percutaneous Approach (ICD-10-PCS; 2018-12-22)
PROC: 3E0234Z Introduction of Serum, Toxoid and Vaccine into Muscle, Percutaneous Approach (ICD-10-PCS; 2018-12-22)
PROC: 5A1D70Z Performance of Urinary Filtration, Intermittent, Less than 6 Hours Per Day (ICD-10-PCS; 2018-12-22)
DX: K56.41 Fecal impaction (principal); N17.0 Acute kidney failure with tubular necrosis; J18.9 Pneumonia, unspecified organism; N18.6 End stage renal disease; I50.43 Acute on chronic combined systolic (congestive) and diastolic (congestive) heart failure; I13.2 Hypertensive heart and chronic kidney disease with heart failure and with stage 5 chronic kidney disease, or end stage renal disease; K76.6 Portal hypertension; N25.81 Secondary hyperparathyroidism of renal origin; Q61.3 Polycystic kidney, unspecified; R18.8 Other ascites; E44.1 Mild protein-calorie malnutrition; E11.22 Type 2 diabetes mellitus with diabetic chronic kidney disease; E11.65 Type 2 diabetes mellitus with hyperglycemia; D63.8 Anemia in other chronic diseases classified elsewhere; E11.51 Type 2 diabetes mellitus with diabetic peripheral angiopathy without gangrene; E66.01 Morbid (severe) obesity due to excess calories; K80.20 Calculus of gallbladder without cholecystitis without obstruction; F03.90 Unspecified dementia, unspecified severity, without behavioral disturbance, psychotic disturbance, mood disturbance, and anxiety; K31.9 Disease of stomach and duodenum, unspecified; K64.8 Other hemorrhoids; K74.60 Unspecified cirrhosis of liver; Z89.511 Acquired absence of right leg below knee; Z99.2 Dependence on renal dialysis; Z91.018 Allergy to other foods; Z79.899 Other long term (current) drug therapy; Z83.3 Family history of diabetes mellitus; Z82.49 Family history of ischemic heart disease and other diseases of the circulatory system; Z68.31 Body mass index [BMI] 31.0-31.9, adult
CPT/HCPCS: 36415; 49083; 71045; 74018; 76705; 78445; 80048; 80053; 82140; 82150; 82607; 82728; 82746; 82945; 82948; 82977; 83036; 83540; 83615; 83690; 83735; 83880; 84100; 84157; 84443; 84484; 85025; 85045; 85610; 85730; 86677; 86704; 86706; 86708; 86709; 86803; 87070; 87075; 87081; 87205; 87340; 88305; 89051; 90732; 93005; 93308; 93925; 93970; 97110; 97116; 97530; 99285; J1200; J1815; J1885; J1956; J2001; J2250; J2270; J2405; J2765; J3010; J7030; Q0092